=== PATIENT | female | born 1940 | race Caucasian/White ===

== ENCOUNTER 2019-09-22 17:11 | Inpatient (IN) | payer MEDICARE ==
[2019-09-22] MEDS ORDERED: Ketorolac Tromethamine 30 MG/ML VIAL ONE (19:10)
[2019-09-22] MEDS ORDERED: Fentanyl 100 MCG/2 ML VIAL ONE ×2 (19:10→22:58)
[2019-09-22] MEDS ORDERED: Digoxin 0.5 MG/2 ML AMP ONE (20:03)
[2019-09-22] MEDS ORDERED: Diltiazem HCl 125 MG, Admixture Fee 1 EACH in Sodium Chloride 0.9% 100 ML IVPB SCH (20:15)
[2019-09-22 22:12] LABS: Troponin I Less than 0.010 ng/mL (< 0.028)
[2019-09-22] MEDS ORDERED: Enoxaparin Sodium 100 MG/ML SYRINGE ONE (22:47)
[2019-09-22] MEDS ORDERED: Sodium Chloride 0.9% 1,000 ML IV SCH (23:41)
[2019-09-22 23:50] VITALS: BMI 31.7
[2019-09-23] MEDS ORDERED: Diltiazem HCl 125 MG, Admixture Fee 1 EACH in Sodium Chloride 0.9% 100 ML IVPB SCH ×3 (00:25→14:45)
[2019-09-23] MEDS ORDERED: Nitroglycerin 0.4 MG TAB (25 Tab Bottle) PO PRN (00:56)
[2019-09-23] MEDS ORDERED: Sodium Chloride 0.9% 1,000 ML IV SCH (00:56)
[2019-09-23] MEDS ORDERED: Calcium Carbonate 500 MG ChewTAB PO PRN (00:58)
[2019-09-23] MEDS ORDERED: Ondansetron PF 4 MG/2 ML Vial IVP PRN (00:58)
[2019-09-23] MEDS ORDERED: Ondansetron ODT 4 MG TAB PO PRN (00:58)
[2019-09-23] MEDS ORDERED: Metoprolol Tartrate 25 MG TAB PO SCH ×2 (01:00→09:00)
[2019-09-23] MEDS ORDERED: Tamsulosin HCl 0.4 MG CAP PO SCH ×2 (01:00→21:00)
[2019-09-23 01:10] LABS: Anion Gap 15 mmol/L (10-20); BUN (Urea Nitrogen) 12 mg/dL (9.8-20.1); Calc. Creatinine Clearance 86 mL/min (70-130); Calcium 8.6 mg/dL (7.8-10.44); Carbon Dioxide 24 mmol/L (23-31); Chloride 110 mmol/L (98-107); Estimated GFR-MDRD 73; Glucose 106 mg/dL (83-110); Magnesium 1.7 mg/dL (1.6-2.6); Phosphorus 2.6 mg/dL (2.3-4.7); Potassium 4.3 mmol/L (3.5-5.1); Sodium 145 mmol/L (136-145)
[2019-09-23] MEDS ORDERED: Polyethylene Glycol 3350 17 GM Packet PO PRN (01:24)
[2019-09-23] MEDS ORDERED: Magnesium 2 GM/50 ML 2 GM in Premix Bag 1 BAG IVPB SCH (01:30)
[2019-09-23] MEDS: Sodium Chloride 0.45% 1,000 ML IV SCH ×2 (01:30→12:17)
--- NOTE | 2019-09-23 01:56 | HP ---
The patient was seen and examined on September 22, 2019. CHIEF COMPLAINT: Right flank pain of one day duration. PRIMARY CARE PHYSICIAN: LEANDRA Arteaga. PRIMARY MACHINE OPERATOR GENERAL: Dr. Kosta Wright in [place]. HISTORY OF PRESENT ILLNESS: The patient is an 79-year-old female with supraventricular tachycardia, nonsustained ventricular tachycardia, diabetes mellitus type 2, hypertension, and breast cancer in the past, presented to the emergency room at [facility] with above complaints. The patient presented to the emergency room with diffuse abdominal pain that started in the last 24 to 36 hours. The pain was located in the right lower quadrant radiating to her back. It was constant, [id number] in intensity without any aggravating or relieving factor. She had nausea along with the low-grade fever. She denies any urinary symptoms. No chest pain reported. She felt lightheaded with intermittent palpitations. In the emergency room at [facility], her initial vital signs showed temperature 98.9, pulse rate of 137, blood pressure 119/89, respirations of 18 with O2 saturation of 98% on room air. Her workup was consistent with atrial fibrillation with rapid ventricular response along with 7 mm obstructive calculi in the mid right ureter with suspected pyelonephritis. She was started on ceftriaxone along with Cardizem drip and was transferred to this facility. In the emergency room, she received digoxin, fentanyl, and Cardizem drip was increased. She also received Lovenox 1 mg/kg at 2253. PAST MEDICAL HISTORY: 1. Diabetes mellitus type 2, diet controlled. 2. Nonsustained ventricular tachycardia found during a two-week event monitor in January of 2019. She had five episodes of nonsustained ventricular tachycardia between 3 to 5 beats. Beta-karis dose was not increased due to underlying bradycardia. 3. History of supraventricular tachycardia. 4. History of breast cancer, status post right lumpectomy. She stopped tamoxifen. 5. Degenerative joint disease. 6. History of hydrocephalus, status post SOFT SUGAR CUTTER shunt. 7. Hypertension. 8. Osteoporosis. 9. Echocardiogram in January of 2019, showed ejection fraction of 65% with questionable diastolic dysfunction. 10. Stress test in February of 2019, showed normal left ventricular systolic function with fixed finding at the anterior wall, likely representing breast attenuation artifact given the normal thickening at this segment. 11. CT scan of the abdomen and pelvis as discussed above. 12. Chest x-ray was negative for infiltrate or edema. 13. EKG by my review showed atrial fibrillation/flutter with rapid ventricular response. PAST SURGICAL HISTORY: 1. Appendectomy. 2. Bilateral salpingo-oophorectomy. 3. Breast lumpectomy. 4. Cholecystectomy. 5. SOFT SUGAR CUTTER shunt placement. 6. Hysterectomy. ALLERGIES: THE PATIENT IS ALLERGIC TO POLLENS. CURRENT HOME MEDICATION: 1. Metoprolol 25 mg b.i.d. 2. Zocor 20 mg at bedtime. 3. Effexor extended release 37.5 mg 3 capsules daily. 4. Vitamin B12 daily. 5. Calcium with vitamin D daily. 6. Aricept 10 mg at bedtime. 7. Estrace vaginal cream as directed. SOCIAL HISTORY: The patient is a former smoker, quit in 1986. She drinks alcohol socially. She is full code. Her decision maker is her daughter, Zahira Armas, phone #[phone]. FAMILY HISTORY: Mother with breast cancer. Another sister with breast cancer. REVIEW OF SYSTEMS: All other review of systems reviewed and were found negative. PHYSICAL EXAMINATION: VITAL SIGNS: As discussed above. GENERAL: 79-year-old female, in no apparent distress. Pain controlled at this time. HEENT: Head, atraumatic and normocephalic. Sclerae anicteric. Moist mucous membranes. No oral lesion. NECK: Supple. No JVD appreciated. No carotid bruit. LUNGS: Clear to auscultation bilaterally. No wheezing, rales, rhonchi. HEART: S1, S2 present. Tachycardic. No rubs or gallops. There is questionable 2/6 systolic murmur over the mitral area. ABDOMEN: Soft. There is mild tenderness in the right flank. No rebound or guarding. No costovertebral angle tenderness. EXTREMITIES: No edema or calf tenderness. NEUROLOGY: Grossly nonfocal, moves all 4 extremities. PSYCHIATRY: Alert, awake, and oriented x3. SKIN: Warm and dry. LYMPH NODES: No palpable lymph nodes in the neck. Peripheral, vascular radial pulses palpable bilaterally. MUSCULOSKELETAL: No joint swelling or tenderness. LABORATORY FINDINGS: CBC showed WBC 6.0 with hemoglobin 12.8, hematocrit 38.9, platelet 197. Chemistry showed sodium 141, potassium 4.1, chloride 106, bicarb 24, BUN of 14, creatinine of 0.79, glucose of 119. AST, ALT, alkaline phosphatase, and total bilirubin in normal range. Albumin was 4.0. IMPRESSION: 1. Atrial flutter/fibrillation with rapid ventricular response. 2. Complicated right pyelonephritis with 7 mm obstructing ureteral calculi. 3. History of nonsustained ventricular tachycardia. The patient had two weeks event monitor placed in January of 2019 that showed between 3 to 5 beats of nonsustained ventricular tachycardia. Please note, beta blockers were not increased due to underlying bradycardia. 4. History of supraventricular tachycardia. 5. History of hydrocephalus, status post ventriculoperitoneal shunt. 6. Hypertension. 7. Diet-controlled diabetes mellitus type 2. 8. Osteoporosis. 9. History of breast cancer in the past. 10. Degenerative joint disease. 11. Depression, mild stable. The patient denies any suicidal ideation. 12. Obesity with a BMI of 31.8. PLAN: The patient will be monitored in the IMCU. We will continue Cardizem drip. We will add fentanyl for pain control. We will add Flomax. We will strain the urine. Consult Cardiology and Urology in a.m. We will check echocardiogram. We will keep her n.p.o. past midnight. Continue 1 mg/kg Lovenox. Empiric antibiotics. The patient understands the above plan of care. Job ID: [id number]
--- NOTE | 2019-09-23 05:05 | PDOC.EVN ---
Event Note - Event Note Event Note: RN called - Pt converted to SR Will reduce Cardizem drip tp 5 mg/hr Update at 05:34 RN called -Pt had sinus pause upto 3 sec. Will dc Cardizem drip
[2019-09-23] MEDS ORDERED: Atropine Sulfate 1 mg/1 ml Vial IVP PRN (05:33)
[2019-09-23] MEDS: Fentanyl 100 MCG/2 ML VIAL SLOW IVP PRN ×2 (05:36→14:03)
[2019-09-23] MEDS: cefTRIAXone\\ROCEPHIN 2 GM in Sodium Chloride 0.9% 100 ML IVPB SCH (07:37)
[2019-09-23] MEDS: Famotidine 20 MG TAB PO SCH ×2 (07:38→21:25)
[2019-09-23] MEDS: Senokot S 8.6-50 MG TAB PO SCH ×2 (07:38→21:25)
--- NOTE | 2019-09-23 07:56 | CON ---
DATE OF CONSULTATION: 09/23/2019 REASON FOR CONSULT: Right hydronephrosis. PRIMARY CARE PHYSICIAN: Teresa Whitaker. PRIMARY FINANCIAL ADMINISTRATION OFFICER: Dr. Kosta Wright in [place]. HISTORY OF PRESENT ILLNESS: Ms. John is a pleasant 79-year-old female with history of diabetes, history of arrhythmia, followed by turpentiner in [place]. She denies prior history of kidney stones, presented to the [facility] Emergency Room due to 1 to 2 days history of right lower quadrant abdominal discomfort. The pain was rated at 10/10 on pain scale, subsequently her pain is adequately controlled. She, with episodes of pain, developed rapid ventricular rhythm, atrial fibrillation and is currently in IMCU on Cardizem drip. She developed bradycardia, subsequently converted to sinus, however with exacerbation of discomfort, converted back to atrial fibrillation per nursing staff. She is nontoxic appearing. Vital signs are stable, afebrile. She was provided Rocephin at [facility], transferred for higher level of care. Cardiology consultation in-house is pending. I did review extensive records regarding her CT, labs, her cardiac history. Currently, she is resting comfortably, however, has recurrence of right lower quadrant pain consistent with ureterocolic discomfort. She had subjective chills, however, no fever. Denies dysuria, gross hematuria, and history of recurrent urinary tract infection. PAST MEDICAL HISTORY: Include; 1. Diabetes, type 2. 2. History of ventricular tachycardia. 3. History of SVT. 4. History of breast cancer, status post lumpectomy. 5. DJD. 6. History of hydrocephalus, status post FRUIT GRADING SUPERVISOR shunt. 7. Hypertension. 8. Osteoporosis. PAST SURGICAL HISTORY: Include appendectomy, bilateral salpingectomy, breast lumpectomy, cholecystectomy, open FRUIT GRADING SUPERVISOR shunt, and hysterectomy. ALLERGIES: NO KNOWN DRUG ALLERGIES. CURRENT MEDICATIONS: Include; 1. Tylenol. 2. [place]. 3. Atropine. 4. Tums. 5. Rocephin, which I provided this morning. 6. Lovenox 90 mg b.i.d. 7. Pepcid. 8. Sublimaze. 9. Metoprolol. 10. Nitrostat. 11. Zofran. 12. MiraLAX. 13. Senokot. 14. Flomax. SOCIAL HISTORY: She is a former smoker, quit in 1986. Occasional alcohol. Social drinker. Full code. Daughter's name is Zahira Armas, phone #[phone]. FAMILY HISTORY: Positive for breast cancer in her sister and mother. REVIEW OF SYSTEMS: Ten-point review of systems as above, otherwise noncontributory. PHYSICAL EXAMINATION: VITAL SIGNS: Her vital signs are stable at 98.4 temperature; heart rate last night was 136 and 138 highest, this morning at 73; and oxygen saturation 94% on room air. GENERAL: The patient appears to be in no acute distress. HEENT: Unremarkable. HEART: Irregularly irregular. LUNGS: Clear to auscultation. ABDOMEN: Morbidly obese. Protuberant. No rigidity. No rebound. However, has right lower quadrant discomfort consistent with ureteral stone discomfort. GENITOURINARY: Demonstrates severe atrophic vaginitis. EXTREMITIES: No cyanosis, clubbing, or edema. PSYCHIATRIC: Appears to be appropriate and intact. NEUROLOGIC: No gross focal deficits of concern. PERTINENT LABORATORY AND IMAGING DATA: White count 9, hemoglobin 13, and platelet 219. Creatinine 1.0. Repeat creatinine this morning is 0.7. Troponin negative x2. Hemoglobin A1c on September 17, 2019 is 6.2. Urinalysis from [facility] demonstrates yellow clear, negative nitrites, negative leukocytes, 3 to 9 rbc's, no wbc's, rare epithelials, rare bacteria. Urine culture was not obtained at [facility]. CT of the abdomen and pelvis, which I reviewed myself, demonstrates right hydronephrosis due to 7-mm right mid ureteral calculi per my review at the level L4-L5. This is done with contrast with bilateral symmetric enhancement. FRUIT GRADING SUPERVISOR shunt noted. A 5-mm right adrenal myelolipoma. Left kidney is grossly unremarkable. Stress test from [facility] records reviewed from February 2019 demonstrating normal EF, normal perfusion scan. In January 2019, echocardiogram at [facility] demonstrates normal findings. EF of 65%. IMPRESSION AND PLAN: Ms. John is an 79-year-old female with history of diabetes. 1. Breast cancer. 2. Diabetes. 3. History of supraventricular tachycardia, arrhythmia, presents with right mid proximal ureteral calculi with hydronephrosis. 4. New-onset atrial fibrillation with rapid ventricular rhythm, currently rate controlled. Presents with urologic issues of right mid ureteral calculi with hydronephrosis The patient has exacerbation arrhythmia with renal colicky discomfort. She is n.p.o. for cysto, right stent. I informed the patient that we will perform ureteroscopy, laser lithotripsy at a later time, after further cardiac workup. We will reach out the hospitalist regarding surgical intervention. Anticipate cysto stent placement today. She is n.p.o. Rocephin to be started. I will obtain a straight cath, UA, C and S. Elective ureteroscopy, laser lithotripsy at a later date. Extensive time spent reviewing [facility] records, updating clinical history Job ID: [id number] [facility]ENTER[facility]
[2019-09-23 08:24] LABS: Bilirubin Negative (Negative); Blood, Urine 3+ (Negative); Clarity Clear (Clear); Glucose, Urine (Dipstick) Normal (Negative); Leukocyte Negative Leu/uL (Negative); Nitrite Negative (Negative); Protein, Urine (Dipstick) 30 mg/dL (Neg-Trace); RBC/HPF Greater than 50 HPF (0-3); Squamous Epithelial 0-3 HPF (0-3); Urobilinogen Normal mg/dL (Less than 2)
[2019-09-23] MEDS: Enoxaparin Sodium 100 MG/ML SYRINGE SC SCH ×2 (08:24→21:28)
[2019-09-23 08:34] LABS: Bacteria/HPF 1+ HPF (None Seen)
[2019-09-23] MEDS ORDERED: PROPOFOL 200 MG/20 ML VIAL ONE (09:39)
[2019-09-23] MEDS ORDERED: PHENYLEPHRINE-NS 100 MCG/ML 10 ML SYRINGE ONE (09:39)
[2019-09-23] MEDS ORDERED: Esmolol 100 MG/10 ML VIAL ONE (09:39)
[2019-09-23] MEDS ORDERED: Lidocaine 1% PF 5 ML VIAL ONE (09:39)
[2019-09-23] MEDS ORDERED: Iothalamate Meglumine 60% 50 ML VIAL FS ONE (09:40)
--- NOTE | 2019-09-23 10:56 | RAD ---
RETROGRADE IVP: COMPARISON: None. HISTORY: Right ureteral stent. FINDINGS/IMPRESSION: Limited intraoperative fluoroscopic views from retrograde IVP were submitted for interpretation. The re is mild to moderate right-sided hydronephrosis. The last image is blurry, but there may be a sten t in the right renal collecting system. Cholecystectomy clips are seen. POS: TPC
[2019-09-23] MEDS ORDERED: Fentanyl 100 MCG/2 ML VIAL ONE ×2 (11:00→11:13)
[2019-09-23] MEDS: HYDROcodone/Acetaminophen 5/325 mg Tablet PO PRN ×3 (12:16→21:25)
--- NOTE | 2019-09-23 12:35 | OP ---
DATE OF PROCEDURE: 09/23/2019 PREOPERATIVE DIAGNOSES: An 79-year-old female with right mid ureteral calculi, 7 mm with hydronephrosis. POSTOPERATIVE DIAGNOSES: An 79-year-old female with right mid ureteral calculi , 7 mm with hydronephrosis. PROCEDURES PERFORMED: Cystoscopy, right retrograde 4.8 x 26 double-J ureteral stent placement with distal tail in-situ. ANESTHESIA: LMA. COMPLICATIONS: None apparent. DISPOSITION: To recovery room in stable condition. DRAINS: A 16-Italian Delatorre catheter to gravity. INDICATIONS FOR PROCEDURE AND HISTORY: Ms. John is an 79-year-old female, who presented to [facility], transitioned to [facility] for higher level of care. She was found to be having new onset atrial fibrillation with rapid ventricular rate, CT demonstrated right hydronephrosis due to mid ureteral calculi, 7 mm. She presents for cysto, right stent placement. Cardiology consultation is pending. Her workup at [facility] few months ago with echo stress test was grossly unremarkable. Indications for the surgery reviewed including, but not limited to, bleeding, pain, infection, injury to adjacent organs, urosepsis, ureteral, renal, or kidney injury. She has been fully informed that a stage intervention will be performed when she is more stable from cardiac standpoint to proceed with ureteroscopy and laser lithotripsy. DESCRIPTION OF PROCEDURE: After an informed consent was signed, the patient was taken to the operating room, placed in a dorsal lithotomy position with the genital area prepped and draped in the usual surgical sterile fashion. A 21-Italian cystoscope was utilized for cystoscopy, which demonstrated normal urethra and bladder mucosa, UOs are normal orthotopic position. The right UO was intubated with a 5-Italian open-ended catheter and a gentle retrograde pyelogram was performed demonstrating hydronephrosis with tortuous proximal ureter. Subtle filling defect in the level of L4-L5 consistent with a stone. There was some dilation of the mid to distal ureter at the level of the bifurcation of the iliacs as it crosses; however, no filling defect is noted. I attempted to pass a 6-Italian indwelling ureteral stent. However, there was resistance in the mid to distal ureter. Therefore, I did not forcibly engage. Subsequently, we transitioned to a 4.8- Italian by 26 ureteral stent, which passed without significant issues. Proximal coil was seen in the renal pelvis, distal coil with adequate redundancy. She tolerated the procedure well. A 16-Italian 10 mL Delatorre catheter attached to gravity bag and we will monitor the patient. She will continue Rocephin until urine culture comes back. Cardiology consultation pending. She will require cardiac clearance to proceed with ureteroscopy and laser lithotripsy at a later date. Job ID: [id number] [facility]
[2019-09-23 13:13] LABS: #Eosinphils 0.1 thou/uL (0.0-0.7); #Lymphocytes 1.3 thou/uL (1.20-3.40); #Monocytes 0.5 thou/uL (0.11-0.59); %Basophils 0.4 % (0.0-1.0); %Eosinophils 1.6 % (0.0-10.0); %Lymphocytes 18.5 % (21.0-51.0); %Monocytes 7.3 % (0.0-10.0); %Neutrophils 72.2 % (42.0-75.0); Hemoglobin 12.7 g/dL (12.0-16.0); Mean Corpuscular HGB CONC 33.8 g/dL (32.0-36.0); Mean Corpuscular Hemoglobin 29.4 pg (27.0-31.0); Mean Corpuscular Volume 87.1 fL (78.0-98.0); Platelet Count 194 thou/uL (130-400); RBC Distribution Width 13.7 % (11.5-14.5); Red Blood Cell (RBC) Count 4.32 mill/uL (4.20-5.40)
[2019-09-23 13:34] LABS: Anion Gap 10 mmol/L (10-20); BUN (Urea Nitrogen) 11 mg/dL (9.8-20.1); Calc. Creatinine Clearance 87 mL/min (70-130); Calcium 8.3 mg/dL (7.8-10.44); Carbon Dioxide 26 mmol/L (23-31); Chloride 110 mmol/L (98-107); Estimated GFR-MDRD 74; Glucose 141 mg/dL (83-110); Potassium 3.8 mmol/L (3.5-5.1); Sodium 142 mmol/L (136-145)
[2019-09-23] MEDS ORDERED: HumaLOG 300 UNITS/3 ML VIAL SC PRN (14:38)
[2019-09-23] MEDS ORDERED: Dextrose 50% Abboject 50 ML SYRINGE IVP PRN (14:38)
[2019-09-23] MEDS ORDERED: Dextrose 5% in Water 1,000 ML IV PRN (14:38)
--- NOTE | 2019-09-23 15:49 | PRG ---
DATE OF SERVICE: 09/23/2019 SUBJECTIVE: Ms. John is an 79-year-old female, who presented last night from [facility]. She is followed there by a pearl technician. Apparently, she reported 1 to 2 days of right lower quadrant pain that was fairly severe. Apparently, with an episode of pain, she developed onset of AFib with RVR and was started on a Cardizem drip. She subsequently developed bradycardia, converted to sinus. However, with exacerbations of her pain, was having recurring episodes of AFib with RVR. The patient was seen by Urology. She was able to look at records from [facility], where the patient had echocardiogram revealing ejection fraction of 65% and a normal perfusion scan in February. The patient was subsequently taken this morning for ureteral stent placement. She subsequently has been doing okay with respect to that. She is still slightly uncomfortable, but generally improved. She reports that she had a near syncopal episode at home and had another in the emergency department in [place], got up to go to the bathroom over there and passed out entirely. OBJECTIVE: VITAL SIGNS: Temperature is 97.8, pulse 109, blood pressure 117/84, respirations 21, and O2 saturation 99%. GENERAL APPEARANCE: Age-appropriate female, in no distress. Awake, alert, oriented, pleasant, and cooperative. HEENT: PERRL. Pupils slightly constricted. HEART: Irregularly irregular without murmurs. LUNGS: Clear bilaterally. ABDOMEN: Soft, nontender, and nondistended. Positive bowel sounds. No masses. No organomegaly. EXTREMITIES: No cyanosis, clubbing, or edema. LABORATORY DATA: Generally unremarkable. IMPRESSION AND PLAN: 1. Cardiac pause. While I was discussing the situation with the patient today, her monitor went flat line and the patient became unresponsive, she remains asystolic for about 5 seconds and subsequently, recovered heart rhythm and awakened fully. She indicated this is the fourth time something like this has happened to her in the last couple of days. This morning, she had received p.o. 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 Case was discussed with Dr. Osorio and subsequently with Dr. Jimenez, who will come and see the patient today. Of note, her thyroid levels were normal. 2. Left ureterolithiasis. The patient had stent placed this morning by Dr. King. Continue tamsulosin and Rocephin. 3. Atrial fibrillation with rapid ventricular response. Again, the patient is having some pauses, consistent with tachy-torin syndrome. We will defer any further aggressive treatment of rate to Electrophysiology. She has been ordered Lovenox. 4. Diabetes mellitus. Continue with sliding scale insulin. 5. History of NSVT per records. Job ID: [id number] [facility]
--- NOTE | 2019-09-23 15:59 | CON ---
DATE OF CONSULTATION: HISTORY OF PRESENT ILLNESS: The patient is an 79-year-old woman, who presents for evaluation after losing consciousness. The patient has a previous history apparently of nonsustained ventricular tachycardia. She is followed by a cheese pancake roller at [facility]. She presented with abdominal discomfort. She was noted to be in rapid irregular heart rhythm. The patient reports that she has had several episodes, where she felt extremely weak and nearly lost consciousness. The patient was in the [facility] when she suddenly lost consciousness. She was admitted and today underwent a procedure for renal stone. The patient was placed on medical therapy for atrial fibrillation. She was in the hospital when she suddenly lost consciousness. The patient denied having any chest discomfort. PAST MEDICAL HISTORY: Significant for, 1. Nonsustained ventricular tachycardia. 2. Diabetes mellitus. 3. Hypertension. 4. Breast carcinoma. 5. Hydrocephalus. 6. Diabetes mellitus. 7. Dyslipidemia. PAST SURGICAL HISTORY: Salpingo-oophorectomy, appendectomy, cholecystectomy, lumpectomy, ZIPPER SETTER CHAINSTITCH shunt, and hysterectomy. ALLERGIES: SHE IS ALLERGIC TO POLLEN. MEDICATIONS: On admission, see nursing list. SOCIAL HISTORY: Former smoker. PHYSICAL EXAMINATION: GENERAL: This is a well-developed woman, in no acute distress. VITAL SIGNS: Blood pressure 117/84. NECK: Showed no jugular venous distention. LUNGS: Clear to auscultation. HEART: Irregular rate and rhythm. Normal S1 and S2. ABDOMEN: Distended. EXTREMITIES: Showed no edema. VASCULAR: Radial pulses are 2+. LABORATORY DATA: Sodium 142, potassium 3.8, chloride 110, bicarbonate 26, BUN 11, and creatinine 0.75. Troponin 0.02. White blood cell count 7.0, hemoglobin 12.7, hematocrit 37.7, and platelets are 194. IMAGING DATA: EKG revealed atrial fibrillation with a rapid ventricular response, nonspecific ST-T wave abnormality. Telemetry monitoring revealed a long pause of approximately 4 seconds. IMPRESSION: 1. Sick sinus syndrome. 2. Rapid atrial fibrillation. 3. Diabetes mellitus. 4. Hypertension. 5. Status post ureteral stent. PLAN: This patient has had several near syncopal episodes. From a cardiac standpoint, she has sick sinus syndrome with atrial fibrillation. The patient will undergo an EP consultation and most likely need placement of electronic pacemaker. We would then consider electrical cardioversion if she remains in atrial fibrillation. We will follow this patient with you through her hospitalization. Job ID: [id number]
[2019-09-23] MEDS ORDERED: Atropine Sulfate 1 mg/10 ml Syringe ONE (18:20)
[2019-09-23] MEDS: Docusate 100 MG CAP PO SCH (21:25)
--- NOTE | 2019-09-23 21:26 | CON ---
DATE OF CONSULTATION: 09/23/2019 HISTORY OF PRESENT ILLNESS: Ms. John is a very pleasant woman, transferred to the ICU for atrial fibrillation. She had a sinus pause. It was felt she would be better monitored in the ICU, then in the intermediate care unit by her vascular physician. She had no complaints when I saw her. She had a ureteral stent placed today. She tells me that she has been having multiple episodes of syncope or near syncope, especially over the last week. She was noted to be in atrial fibrillation which is a new finding. PAST MEDICAL HISTORY: 1. Remarkable for nonsustained ventricular tachycardia. 2. Diabetes. 3. Hypertension. 4. History of breast cancer. 5. History of hydrocephalus. 6. Diabetes. 7. Lipid disorder. 8. Status post hysterectomy and salpingo-oophorectomy. 9. Status post appendectomy. 10. History of cholecystectomy. 11. History of breast lumpectomy. 12. History of SEO INTERN shunt. SOCIAL HISTORY: She is a nonsmoker and nondrinker. She did smoke in the distant past. ALLERGIES: SHE IS NOT ALLERGIC TO ANY MEDICINES. REVIEW OF SYSTEMS: Ten points otherwise negative other than the blackout spells that she calls them, they have been occurring with increasing frequency over the last few weeks, especially the last week. PHYSICAL EXAMINATION: GENERAL: She is in atrial fibrillation with a rate of around 100 when I saw her earlier today. Blood pressure 102/67, respiratory rate is in the teens, and oximetry is 95. HEENT: Pupils are equal. Sclerae anicteric. NECK: Supple. No lymphadenopathy. LUNGS: Clear. HEART: Irregular rhythm. S1 and S2 are normal. ABDOMEN: Soft and nontender. EXTREMITIES: No clubbing, cyanosis, or edema. NEUROLOGIC: Nonfocal. IMPRESSION: Sick sinus syndrome with atrial fibrillation as well as sinus pauses and multiple episodes of syncope and near syncope as an outpatient. I suspect she will end up getting paced at some point. She will be monitored in critical care unit. She does not have any respiratory issues at this time. This is a 50 minute consult, with greater than 50% of time spent on unit coordinating care Job ID: [id number] [facility]
[2019-09-23] MEDS: Trospium 20 MG TAB PO SCH (21:44)
[2019-09-24 03:41] LABS: #Eosinphils 0.2 thou/uL (0.0-0.7); #Lymphocytes 1.6 thou/uL (1.20-3.40); #Monocytes 0.5 thou/uL (0.11-0.59); #Neutrophils 3.6 thou/uL (1.40-6.50); %Basophils 0.5 % (0.0-1.0); %Eosinophils 2.6 % (0.0-10.0); %Lymphocytes 26.4 % (21.0-51.0); %Monocytes 8.7 % (0.0-10.0); %Neutrophils 61.9 % (42.0-75.0); Hemoglobin 12.4 g/dL (12.0-16.0); Mean Corpuscular HGB CONC 33.2 g/dL (32.0-36.0); Mean Corpuscular Volume 87.5 fL (78.0-98.0); Platelet Count 159 thou/uL (130-400); RBC Distribution Width 13.6 % (11.5-14.5); Red Blood Cell (RBC) Count 4.26 mill/uL (4.20-5.40); White Blood Cell (WBC) Count 5.9 thou/uL (4.8-10.8)
[2019-09-24 04:05] LABS: ALT (SGPT) 11 U/L (8-55); AST (SGOT) 13 U/L (5-34); Albumin 3.3 g/dL (3.4-4.8); Alkaline Phosphatase 63 U/L (40-110); Anion Gap 13 mmol/L (10-20); BUN (Urea Nitrogen) 8 mg/dL (9.8-20.1); Bilirubin, Total 0.3 mg/dL (0.2-1.2); Calc. Creatinine Clearance 94 mL/min (70-130); Calcium 8.3 mg/dL (7.8-10.44); Carbon Dioxide 20 mmol/L (23-31); Chloride 112 mmol/L (98-107); Estimated GFR-MDRD 82; Globulin 2.6 g/dL (2.4-3.5); Glucose 108 mg/dL (83-110); Magnesium 1.9 mg/dL (1.6-2.6); Potassium 3.4 mmol/L (3.5-5.1); Protein, Total 5.9 g/dL (6.0-8.3); Sodium 142 mmol/L (136-145)
[2019-09-24] MEDS: Sodium Chloride 0.45% 1,000 ML IV SCH ×2 (05:46→16:45)
[2019-09-24] MEDS: cefTRIAXone\\ROCEPHIN 2 GM in Sodium Chloride 0.9% 100 ML IVPB SCH (07:51)
--- NOTE | 2019-09-24 08:52 | PRG ---
DATE OF SERVICE: 09/24/2019 SUBJECTIVE: patient feeling okay. She has been moved to ICU due to her atrial fibrillation with RVR. OBJECTIVE: VITAL SIGNS: Her heart rate on 140s. She is afebrile. Blood pressure 140/90. ABDOMEN: Soft, nontender, and nondistended. No rigidity. No rebound. Urine output is linda, red-tinged. She is on Lovenox. Her urine output did drop overnight, previously 2 L, 120. PERTINENT LABORATORY DATA: White count 5.9, hemoglobin 12, and platelet 159. Renal function, creatinine 0.69. Urine culture is pending. UA on arrival did demonstrate 1+ bacteria. IMPRESSION AND PLAN: 1. Ms. John is an 79-year-old female with right flank pain due to midureteral calculi, postop day #1, cysto, right retrograde stent. Continue antibiotic therapy, on Rocephin until culture finalized for targeted antibiotic regimen as an outpatient. 2. Admitted for arrhythmia, sick sinus syndrome. Cardiology workup is in progress. The patient is being worked up for pacemaker. When Cardiology issues have resolved and cleared, w elective ureteroscopy and laser lithotripsy at a later date. Continue Delatorre for now, trospium for bladder spasms. Job ID: [id number] [facility]
[2019-09-24] MEDS ORDERED: Donepezil HCl 10 MG TAB PO ONE (09:00)
[2019-09-24] MEDS: Senokot S 8.6-50 MG TAB PO SCH ×2 (09:13→20:46)
[2019-09-24] MEDS: Famotidine 20 MG TAB PO SCH ×2 (09:14→20:46)
[2019-09-24] MEDS: Enoxaparin Sodium 100 MG/ML SYRINGE SC SCH (09:14)
[2019-09-24] MEDS: Docusate 100 MG CAP PO SCH ×2 (09:14→20:46)
[2019-09-24] MEDS: Trospium 20 MG TAB PO SCH ×2 (09:14→20:46)
--- NOTE | 2019-09-24 09:23 | PRG ---
DATE OF SERVICE: 09/24/2019 SUBJECTIVE: Radha John had multiple episodes of sinus pauses last night. She has external pacing pads on. She said with all this going on overnight, she had nightmares. OBJECTIVE: VITAL SIGNS: Currently, her blood pressure is , heart rates 150s, she appears to be in atrial fib, respiratory rates in the teens. LUNGS: Clear. HEART: Regular and rapid. No murmurs heard. ABDOMEN: Soft and nontender. EXTREMITIES: Without asymmetry. LABORATORY DATA: White count 5.9, hemoglobin 12.4, platelets 159. Sodium 142, potassium 3.4, chloride 112, bicarb 20, BUN 8, creatinine 0.69. IMPRESSION: Tachy-torin syndrome. Fortunately, she is tolerating a rapid rhythm. Clearly, she seems to need a pacemaker at some point. She does not have any clinical evidence of significant pulmonary edema at this point in time, but we will continue to follow closely. Job ID: [id number]
--- NOTE | 2019-09-24 09:29 | CON ---
DATE OF CONSULTATION: REASON FOR CONSULTATION: I am seeing Ms. John at our [facility] Intensive Care Unit as an electrophysiology planning consultant. Her problems are: 1. Newly found atrial flutter/fibrillation. a. 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 b. Rapid ventricular rates are detected. 2. Current admission due to ureteral stone status post stenting. 3. History of nonsustained ventricular tachycardia during monitoring in 01/2019 at 3 to 5 beats, on chronic beta-karis therapy. 4. History of supraventricular tachycardia. 5. History of breast cancer status post lumpectomy. 6. Type 2 diabetes. 7. History of hydrocephalus status post PIPE ORGAN INSTALLER shunt. 8. History of hypertension. 9. History of preserved LVEF at 65% with diastolic dysfunction. 10. Stress test in 02/2019 showing normal left ventricular systolic function, thick anterior wall defect, likely artifact. ALLERGIES: POLLENS. MEDICATIONS AT HOME: Include: 1. Metoprolol 25 mg twice a day. 2. Zocor 10 mg daily. 3. EfFexor extended release. 4. Vitamin B12. 5. Calcium. 6. Aricept. 7. Estrace. SUBJECTIVE: Ms. John was admitted with severe complaints of abdominal pain, radiated to the back, especially in right lower quadrant of the abdomen and the back. This comes in [id number] intensity without relieving factors, lasted about 24 to 36 hours prior to admission. Associated nausea and low-grade fever were noted, but no other urinary symptoms. She denies chest pains. She does have intermittent dizziness and palpitations. She was evaluated in the [facility] ER and was found to have a significant 7-mm obstructive calculi in mid right ureter, suspected pyelonephritis. Ceftriaxone was started and IV Cardizem drip was also initiated. She was transferred to our facility. She did have a history of syncopal, blackout spell in the [place] ER. While on telemetry here in our facility, she had a 5-second pause and she developed a near-syncopal spell, severe dizziness transiently, then resolving, associated with the 5-second pause. Consequently, her heart rate lowering medications were held and she was placed on external pacer. She comes to have rapid heart rate since then. She denies chest pains at this time. No fever, chills, or cough. No PND or orthopnea. REVIEW OF SYSTEMS: Rest of 12-point review of system otherwise unremarkable. PAST MEDICAL HISTORY: As above, followed by Dr. 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 1. She has history of nonsustained VT and was on beta-karis therapy for that, noted on a Zio Patch monitor in the past. 2. Diabetes. 3. Hypertension. 4. Breast cancer with lumpectomy. 5. Hydrocephalus with PIPE ORGAN INSTALLER shunt. 6. Dyslipidemia is noted. SURGICAL HISTORY: Significant for: 1. Salpingo-oophorectomy. 2. Appendectomy. 3. Cholecystectomy. 4. Tonsillectomy. 5. PIPE ORGAN INSTALLER shunt. 6. Hysterectomy. SOCIAL HISTORY: The patient is a prior smoker, quit in 1986. Drinks alcohol socially. She is a full code. Decision maker is her daughter, . FAMILY HISTORY: Significant for mother having breast cancer and sister had breast cancer as well. OBJECTIVE DATA: VITAL SIGNS: Blood pressure 102/67, heart rate 118, respirations 17, and temperature 98.4 degrees Fahrenheit. GENERAL: This is an alert and oriented woman, in no apparent distress with elevated BMI. NECK: Supple. Jugular veins not distended. CHEST: Coarse without crackles. HEART: Sounds are regular to rate and rhythm, but tachycardic. No murmur or gallop is appreciated. ABDOMEN: Benign. Bowel sounds are positive. EXTREMITIES: Lower extremities without edema, clubbing, or cyanosis. NEUROLOGIC: The patient is nonfocal. MUSCULOSKELETAL: Without joint swelling or deformity. SKIN: Without rash. DATABASE: EKG is reviewed, revealing an initial rhythm of an atrial flutter with variable AV conduction at a rate of 132 beats per minute. The flutter waves are low amplitude, but could be consistent with typical isthmus dependent atrial flutter. Subsequent EKG is similar with better ventricular rate control. Telemetry strips reveal intermittent tachycardia at 150 beats per minute, likely 2:1 atrial flutter, but bradycardic episodes are also noted with asystole up to 5.5 seconds are well documented at the time of her near syncopal spells at 04:54 p.m. today. LABORATORY DATA: White blood cell count is 7, hemoglobin 12.7, and platelet count is 194. Sodium 142, potassium 3.8, BUN is 11, and creatinine 0.75. Operative note is reviewed by Dr. King, urologist with cystoscopy performed with a right retrograde 4.8 x 26 double-J ureteral stent was placed for hydronephrosis. ASSESSMENT AND PLAN: Ms. John is a pleasant 79-year-old woman with prior history of nonsustained ventricular tachycardia, remote history of supraventricular tachycardia with details unavailable. She presented with ureteral stone and hydronephrosis, required the ureteral stent placement as above. Now, her urologic symptoms are improving, but she continues to have constant atrial flutter with tachy-torin syndrome. Per her history, this seems to be a new finding. She has recurrent near-syncopal and syncopal spells and clearly demonstrated to be associated with bradycardia. She is on mild heart rate lowering agents, and now she is off the diltiazem drip as well. Heart rate control will be difficult without the capability of IV or p.o. diltiazem or beta blockers. We discussed treatment options. 1. Clearly, she may have AV vasyl disease, but also hypervagotonia associated with her ureteral pains could play a role. No obvious conduction disease on her QRS is present. Nevertheless, permanent pacing would be reasonable, hence the ongoing symptoms. 2. Consideration for cardioversion of her atrial flutter also a potential option. Nevertheless, bradycardia could still persist subsequent to that, especially if vagotonia is the cause of that. If the pauses continue, this pacing would be a primary option, later DESIRAE-guided cardioversion could be considered once the patient can be safely back on anticoagulation as well. 3. Hence the typical isthmus dependent morphology of some of her flutter, cavotricuspid isthmus ablation also a potential option in the future. Risks and benefits of the pacemaker implantation were discussed. We will monitor her overnight, and if heart rate continues to be with major bradycardic episodes, pacemaker implantation will be the plan for tomorrow. Job ID: [id number]
[2019-09-24] MEDS ORDERED: Venlafaxine XR 37.5 MG CAP PO ONE (09:30)
[2019-09-24] MEDS ORDERED: Iopamidol 370 76% 50 ML VIAL FS ONE (09:44)
--- NOTE | 2019-09-24 09:55 | PDOC.HOSPP ---
- Subjective Encounter Date: 09/24/19 Subjective: Feels ok. No pain form the ureterolithiasis. Has very mild chest pressure. She has been shocked by the pads several times. Overnight she had conversion to NSR. Cardizem decreased. Then had pause and it was DC'd. Says she does not feel depressed, but without her meds she will just start crying. - Objective Vital Signs & Weight: Vital Signs (12 hours) Temp 09/24/19 03:00 98.6 F 09/23/19 23:00 98.2 F Weight Weight 202 lb 12.8 oz Most Recent Monitor Data Heart Rate from ECG 149 NIBP 148/90 NIBP BP-Mean 109 Respiration from ECG 14 SpO2 97 I&O: 09/23/19 09/24/19 09/25/19 06:59 06:59 06:59 Intake Total 890 2192 Output Total 420 2005 120 Balance 470 187 -120 Result Diagrams: 09/24/19 03:29 09/24/19 03:29 Additional Labs: Accuchecks 09/23/19 09/23/19 21:09 16:59 POC Glucose 136 H 169 H Hospitalist ROS - Medication Medications: Active Medications Generic Name Dose Route Start Last Admin Trade Name Freq PRN Reason Stop Dose Admin Docusate Sodium 100 mg 09/23/19 21:00 09/24/19 09:14 Colace PO 100 mg BID ANU Administration Enoxaparin Sodium 90 mg 09/23/19 09:00 09/24/19 09:14 Lovenox SC Not Given 0900,2100 ANU Famotidine 20 mg 09/23/19 09:00 09/24/19 09:14 Pepcid PO 20 mg BID ANU Administration Sodium Chloride 1,000 mls @ 75 mls/hr 09/23/19 01:30 09/24/19 05:46 1/2 Normal Saline IV Not Given .[id number] ANU Ceftriaxone Sodium 2 gm/ 100 mls @ 200 mls/hr 09/23/19 08:00 09/24/19 07:51 Sodium Chloride IVPB 100 mls 0800 ANU Administration Insulin Human Lispro 0 units 09/23/19 14:38 09/23/19 17:18 Humalog SC 2 unit .MILD SLIDING SCALE PRN Administration MILD SLIDING SCALE Protocol Senna/Docusate Sodium 2 tab 09/23/19 09:00 02/27/20 09:13 Senokot S PO 2 tab BID ANU Administration Trospium 20 mg 09/23/19 21:00 09/24/19 09:14 Trospium PO 20 mg BID ANU Administration - Exam General Appearance: NAD, awake alert Heart: no murmur, no gallops, no rubs Heart - other findings: SVT with rate 150. Respiratory: CTAB, no wheezes, no rales, no ronchi, normal chest expansion, no tachypnea, normal percussion Gastrointestinal: soft, non-tender, non-distended, normal bowel sounds, no palpable masses, no hepatomegaly, no splenomegaly, no bruit Extremities: no cyanosis, no clubbing, no edema Musculoskeletal: normal tone Psychiatric: normal affect, normal behavior, A&O x 3 Hosp A/P (1) Ureterolithiasis Code(s): N20.1 - CALCULUS OF URETER Status: Acute (2) SVT (supraventricular tachycardia) Code(s): I47.1 - SUPRAVENTRICULAR TACHYCARDIA Status: Acute (3) Sick sinus syndrome due to SA node dysfunction Code(s): I49.5 - SICK SINUS SYNDROME Status: Acute (4) Diabetes mellitus Code(s): E11.9 - TYPE 2 DIABETES MELLITUS WITHOUT COMPLICATIONS Status: Acute (5) Depression Code(s): F32.9 - MAJOR DEPRESSIVE DISORDER, SINGLE EPISODE, UNSPECIFIED Status : Acute (6) Hydronephrosis Code(s): N13.30 - UNSPECIFIED HYDRONEPHROSIS Status: Acute - Plan Uerterolithiasis: Doing well post-ureteral stent. No pain. Urology following. Continue Delatorre and Trospium. Continuing abx until negative cx. Sick Sinus Syndrome: SVT, Afib, pauses with syncope. No with pacer pads and had several shocks for pauses. I am told by nursing that the plan is for EP intevention this afternoon. Suspect ablation and PPM. DM: Does not appear to be on home meds. Continue accuchecks and SSI for now. Depression: Resume home meds/Effexor.
[2019-09-24] MEDS ORDERED: Potassium Chloride 40 MEQ in Sodium Chloride 0.9% 500 ML IVPB SCH (10:30)
[2019-09-24] MEDS ORDERED: Fentanyl 100 MCG/2 ML VIAL ONE (15:35)
[2019-09-24] MEDS ORDERED: Midazolam HCl 2 mg/2 ml Vial ONE (15:35)
[2019-09-24] MEDS ORDERED: Metoprolol Tartrate 5 MG/5 ML VIAL ONE (15:53)
[2019-09-24] MEDS ORDERED: Digoxin 0.5 MG/2 ML AMP ONE (16:10)
--- NOTE | 2019-09-24 16:51 | EKG ---
Test Reason : Blood Pressure : / mmHG Vent. Rate : 149 BPM Atrial Rate : 150 BPM P-R Int : 000 ms QRS Dur : 082 ms QT Int : 280 ms P-R-T Axes : 000 061 -84 degrees QTc Int : 441 ms narrow complex tachycardia with frequent Premature ventricular complexes Abnormal ECG When compared with ECG of 22-SEP-2019 19:37, (Unconfirmed) Sinus rhythm has replaced Atrial flutter Vent. rate has increased BY 69 BPM T wave inversion less evident in Lateral leads Confirmed by DR. Elgin BENOIT (3) on 09/24/2019 4:50:27 PM Referred By: PATRICK Confirmed By:DR. Elgin BENOIT
[2019-09-24] MEDS ORDERED: Metoprolol Tartrate 25 MG TAB PO SCH (17:00)
[2019-09-24] MEDS ORDERED: Digoxin 0.5 MG/2 ML AMP SLOW IVP SCH (17:00)
[2019-09-24] MEDS: Acetaminophen 325 MG TAB PO PRN (17:02)
--- NOTE | 2019-09-24 17:15 | RAD ---
Portable frontal chest radiograph: 09/24/2019 COMPARISON: None HISTORY: Evaluate chest following pacemaker insertion FINDINGS: There is a dual lead transvenous pacing device inserted via a left subclavian approach. Heather ds overlie the region of the right atrium and the right ventricle. No pneumothorax or pleural fluid. No focal consolidation or alveolar edema. There is atherosclerotic calcification of the aortic arch. IMPRESSION: Left-sided dual-lead transvenous pacing device. No pneumothorax seen.
[2019-09-24] MEDS: Metoprolol Tartrate 25 MG TAB PO SCH (20:46)
[2019-09-24] MEDS: Cephalexin 250 MG CAP PO SCH (20:46)
[2019-09-24] MEDS: Digoxin 0.5 MG/2 ML AMP SLOW IVP SCH (22:42)
[2019-09-24] MEDS: Acetaminophen/Codeine 30-300mg Tablet PO PRN (22:42)
[2019-09-25] MEDS: Digoxin 0.5 MG/2 ML AMP SLOW IVP SCH (02:35)
[2019-09-25] MEDS: Sodium Chloride 0.45% 1,000 ML IV SCH (06:01)
[2019-09-25] MEDS: Acetaminophen/Codeine 30-300mg Tablet PO PRN (06:54)
--- NOTE | 2019-09-25 08:04 | PRG ---
DATE OF SERVICE: 09/25/2019 SUBJECTIVE: The patient is alert and awake. Denies nausea, vomiting, or chills. OBJECTIVE: VITAL SIGNS: Stable. She is afebrile. Heart rate 70 to 80s, blood pressure stable. I's and O's 2089 in and 3179 out, pink-tinged urine. ABDOMEN: Soft. No rigidity. No rebound. LABORATORY DATA: Creatinine yesterday 0.6. Urine culture preliminary negative. IMPRESSION AND PLAN: 1. An 79-year-old female presented with right flank pain, right proximal ureteral calculi, status post cystoscopy, right retrograde, ureteral stent, postoperative day #2. 2. Sick sinus syndrome and arrhythmias, status post pacemaker. RECOMMENDATION: From my perspective, discontinue Delatorre catheter. Continue Rocephin while in-house. If patient is discharged over the weekend, I do recommend prophylactic antibiotic therapy with Omnicef 300 mg one p.o. b.i.d. I provided my business card for followup appointment with me on 09/29 to schedule elective ureteroscopy and laser lithotripsy with cardiac clearance. The patient may stay in-house due to her cardiac issues. I informed the patient. [facility] covering me this weekend for p.r.n. issues if she remains in-house. Job ID: [id number] MTDD
[2019-09-25] MEDS: cefTRIAXone\\ROCEPHIN 2 GM in Sodium Chloride 0.9% 100 ML IVPB SCH (09:06)
[2019-09-25] MEDS: Metoprolol Tartrate 25 MG TAB PO SCH ×4 (09:07→21:52)
[2019-09-25] MEDS: Docusate 100 MG CAP PO SCH ×2 (09:07→21:51)
[2019-09-25] MEDS: Cephalexin 250 MG CAP PO SCH ×3 (09:08→21:52)
[2019-09-25] MEDS: Senokot S 8.6-50 MG TAB PO SCH ×2 (09:08→21:51)
[2019-09-25] MEDS: Donepezil HCl 10 MG TAB PO SCH (09:08)
[2019-09-25] MEDS: Digoxin 0.125 MG TAB PO SCH (09:08)
[2019-09-25] MEDS: Famotidine 20 MG TAB PO SCH ×2 (09:08→21:52)
[2019-09-25] MEDS: Venlafaxine XR 37.5 MG CAP PO SCH (09:09)
[2019-09-25] MEDS: Trospium 20 MG TAB PO SCH ×2 (09:09→21:52)
--- NOTE | 2019-09-25 09:21 | PRG ---
DATE OF SERVICE: 09/25/2019 SUBJECTIVE: Radha John has her pacemaker in. She is intermittently paced. OBJECTIVE: VITAL SIGNS: Blood pressure 177/82, heart rate is 80, respiratory rate is 16. LUNGS: Clear. HEART: Regular rhythm. ABDOMEN: Soft. IMPRESSION: Tachy-torin syndrome, better now that she is paced. No new lab today other than glucoses . We will sign off. Job ID: [id number]
--- NOTE | 2019-09-25 10:49 | PDOC.EP ---
- Subjective Date: 09/25/19 Time: 10:47 Interval History: follow up for arrhythmia management and s/p PPM implant. Having some pain at PPM implant site. - Review of Systems Constitutional: denies: chills, fever, malaise, sweats, weakness, other Respiratory: denies: cough, dry, hemoptysis, pleuritic pain, shortness of breath , SOB with excertion, sputum, wheezing, other Cardiology: denies: edema, heart racing, light headedness, palpitations, passing out Gastrointestinal: denies: abdominal pain, constipation, diarrhea Musculoskeletal: denies: unstable gait, falls, neck pain - Objective Allergies/Adverse Reactions: Allergies Allergy/AdvReac Type Severity Reaction Status Date / Time No Known Allergies Allergy Verified 09/23/19 04:45 Current Medications Acetaminophen (Tylenol) 650 mg PO Q4H PRN PRN Reason: Headache/Fever/Mild Pain (1-3) Last Admin: 09/24/19 17:02 Dose: 650 mg Acetaminophen/Codeine Phosphate (Tylenol #3) 1 tab PO Q4H PRN PRN Reason: Pain 4-6 Last Admin: 09/25/19 06:54 Dose: 1 tab Apixaban (Eliquis) 5 mg PO BID [facility] Atropine Sulfate (Atropine) 0.5 mg IVP ASDIR PRN PRN Reason: Sustained Bradycardia HR < 30 Calcium Carbonate (Tums) 1,000 mg PO Q4H PRN PRN Reason: Heartburn or Indigestion Cephalexin (Keflex) 250 mg PO TID [facility] Stop: 10/04/19 15:01 Last Admin: 09/25/19 09:08 Dose: 250 mg Dextrose/Water (Dextrose 50%) 25 gm IVP PRN PRN PRN Reason: HYPOGLYCEMIA PROTOCOL Digoxin (Lanoxin) 0.125 mg PO QAM [facility] Last Admin: 09/25/19 09:08 Dose: 0.125 mg Docusate Sodium (Colace) 100 mg PO BID [facility] Last Admin: 09/25/19 09:07 Dose: 100 mg Donepezil HCl (Aricept) 10 mg PO DAILY [facility] Last Admin: 09/25/19 09:08 Dose: 10 mg Famotidine (Pepcid) 20 mg PO BID [facility] Last Admin: 09/25/19 09:08 Dose: 20 mg Glucagon (Glucagon) 1 mg IM PRN PRN PRN Reason: HYPOGLYCEMIA PROTOCOL Sodium Chloride (1/2 Normal Saline) 1,000 mls @ 75 mls/hr IV .[id number] [facility] Last Admin: 09/25/19 06:01 Dose: 1,000 mls Ceftriaxone Sodium 2 gm/ (Sodium Chloride) 100 mls @ 200 mls/hr IVPB 0800 [facility] Last Admin: 09/25/19 09:06 Dose: 100 mls Dextrose/Water (D5w) 1,000 mls @ 0 mls/hr IV INF PRN PRN Reason: HYPOGLYCEMIA PROTOCOL Insulin Human Lispro (Humalog) 0 units SC .MILD SLIDING SCALE PRN; Protocol PRN Reason: MILD SLIDING SCALE Last Admin: 09/23/19 17:18 Dose: 2 unit Metoprolol Tartrate (Lopressor) 25 mg PO QID [facility] Last Admin: 09/25/19 09:07 Dose: 25 mg Nitroglycerin (Nitrostat) 0.4 mg PO Q5MIN PRN PRN Reason: Chest Pain Polyethylene Glycol (Miralax) 17 gm PO DAILY PRN PRN Reason: Constipation Senna/Docusate Sodium (Senokot S) 2 tab PO BID [facility] Last Admin: 09/25/19 09:08 Dose: 2 tab Sodium Chloride (Flush - Normal Saline) 10 ml IVF PRN PRN PRN Reason: Saline Flush Sodium Chloride (Flush - Normal Saline) 10 ml IVF PRN PRN PRN Reason: Saline Flush Trospium (Trospium) 20 mg PO BID [facility] Last Admin: 09/25/19 09:09 Dose: 20 mg Venlafaxine HCl (Effexor Xr) 112.5 mg PO DAILY [facility] Last Admin: 09/25/19 09:09 Dose: 112.5 mg Vital Signs & Weight: Vital Signs Temp Pulse Pulse Pulse BP BP Pulse Ox 09/25/19 09:20 67 106 H 126/89 159/95 H 95 09/25/19 09:08 72 09/25/19 03:00 98.0 F 09/25/19 02:35 137 H 09/24/19 23:00 98.2 F Pulse Ox 09/25/19 09:20 97 09/25/19 09:08 09/25/19 03:00 09/25/19 02:35 02/27/20 23:00 Weight 202 lb 12.8 oz I/O: I/O 09/24/19 09/25/19 09/26/19 06:59 06:59 06:59 Intake Total 2191 2090 Output Total 2004 3179 Balance 187 -9182 - Quality Measures CV meds: Eliquis: Yes (restarting 2 AM) - Physical Exam General: alert & oriented x3, appears well, no apparent distress, speech clear, affect appropriate HEENT: mucus membranes moist, normocephaly Neck: supple neck, midline trachea, no JVD/HJR, no masses, no bruit, no lymphadenopathy, no thromegaly Cardiology: no murmur, PMI nondisplaced, irregularly irregular Lungs: clear to auscultation, normal breath sounds, no wheeze, rales, rhonchi Neurology: cranial nerve 2-12 intact, grossly intact, sensory function intact Skin: bruising, left sided device, swelling. negative: drainage, erosion - Labs Result Diagrams: 09/24/19 03:29 09/24/19 03:29 - EKG Interpretation EKG Method: Bedside - Device Device: dual, pacemaker Device Result: Medtronic - Assessment/Plan Assessment/Plan: 1. Atrial arrhythmias with RVR - possibly CTI dependent, newly diagnosed - now rate controlled atrial fibrillation 2. Tachy- torin syndrome - s/p dual chamber medtronic PPM placed 09/24/2019 3. Dual chamber PPM - CXR stable - device check stable, normal function 4. CHADS2-VASC: 4 (age, gender, HTN) - Eliquis 5mg PO BID to start 229 AM Now in A Fib. rate controlled. Plan to see back in clinic in 2 weeks for PPM/ wound check. Continue rate control strategy for now. EP signing off.
[2019-09-25] MEDS: Acetaminophen 325 MG TAB PO PRN (14:21)
--- NOTE | 2019-09-25 16:41 | EKG ---
Test Reason : Blood Pressure : / mmHG Vent. Rate : 106 BPM Atrial Rate : 288 BPM P-R Int : 000 ms QRS Dur : 070 ms QT Int : 318 ms P-R-T Axes : 000 055 -84 degrees QTc Int : 422 ms Undetermined rhythm Low voltage QRS Abnormal ECG When compared with ECG of 24-SEP-2019 08:10, Current undetermined rhythm precludes rhythm comparison, needs review Confirmed by DR. Elgin BENOIT (3) on 09/25/2019 4:41:17 PM Referred By: PATRICK Confirmed By:DR. Elgin BENOIT
--- NOTE | 2019-09-25 16:45 | EKG ---
Test Reason : Blood Pressure : / mmHG Vent. Rate : 081 BPM Atrial Rate : 081 BPM P-R Int : 000 ms QRS Dur : 082 ms QT Int : 344 ms P-R-T Axes : 000 049 -87 degrees QTc Int : 399 ms Atrial fibrillation Abnormal ECG When compared with ECG of 24-SEP-2019 17:01, (Unconfirmed) Previous ECG has undetermined rhythm, needs review Confirmed by DR. Elgin BENOIT (3) on 09/25/2019 4:45:26 PM Referred By: PATRICK Confirmed By:DR. Elgin BENOIT
[2019-09-25] MEDS ORDERED: Ondansetron PF 4 MG/2 ML Vial SLOW IVP PRN (19:52)
[2019-09-25] MEDS ORDERED: Ondansetron PF 4 MG/2 ML Vial IVP PRN (20:05)
--- NOTE | 2019-09-25 22:22 | PDOC.HOSPP ---
- Subjective Encounter Date: 09/25/19 Subjective: Feels well. No complaints. No abd pain. - Objective Vital Signs & Weight: Vital Signs (12 hours) Temp Pulse Resp BP Pulse Ox 09/25/19 19:38 97.5 F L 72 18 170/84 H 97 Weight Weight 202 lb 12.8 oz Most Recent Monitor Data Heart Rate from ECG 76 NIBP 165/61 NIBP BP-Mean 95 Respiration from ECG 20 SpO2 95 I&O: 09/24/19 09/25/19 09/26/19 06:59 06:59 06:59 Intake Total 2191 2090 1070 Output Total 2004 3179 1000 Balance 187 -1089 70 Result Diagrams: 09/24/19 03:29 09/24/19 03:29 Additional Labs: Accuchecks 09/25/19 09/25/19 20:56 07:32 POC Glucose 125 H 107 Hospitalist ROS - Medication Medications: Active Medications Generic Name Dose Route Start Last Admin Trade Name Freq PRN Reason Stop Dose Admin Acetaminophen 650 mg 09/23/19 00:58 09/25/19 14:21 Tylenol PO 650 mg Q4H PRN Administration Headache/Fever/Mild Pain (1-3) Acetaminophen/Codeine Phosphate 1 tab 09/24/19 17:33 09/25/19 06:54 Tylenol #3 PO 1 tab Q4H PRN Administration Pain 4-6 Cephalexin 250 mg 09/24/19 21:00 09/25/19 21:52 Keflex PO 10/04/19 15:01 250 mg TID ANU Administration Digoxin 0.125 mg 09/25/19 09:00 09/25/19 09:08 Lanoxin PO 0.125 mg QAM ANU Administration Docusate Sodium 100 mg 09/23/19 21:00 09/25/19 21:51 Colace PO 100 mg BID ANU Administration Donepezil HCl 10 mg 09/25/19 09:00 09/25/19 09:08 Aricept PO 10 mg DAILY ANU Administration Famotidine 20 mg 09/23/19 09:00 09/25/19 21:52 Pepcid PO 20 mg BID ANU Administration Ceftriaxone Sodium 2 gm/ 100 mls @ 200 mls/hr 09/23/19 08:00 09/25/19 09:06 Sodium Chloride IVPB 100 mls 0800 ANU Administration Insulin Human Lispro 0 units 09/23/19 14:38 09/23/19 17:18 Humalog SC 2 unit .MILD SLIDING SCALE PRN Administration MILD SLIDING SCALE Protocol Metoprolol Tartrate 25 mg 09/24/19 21:00 09/25/19 21:52 Lopressor PO 25 mg QID ANU Administration Senna/Docusate Sodium 2 tab 09/23/19 09:00 09/25/19 21:51 Senokot S PO 2 tab BID ANU Administration Trospium 20 mg 09/23/19 21:00 09/25/19 21:52 Trospium PO 20 mg BID ANU Administration Venlafaxine HCl 112.5 mg 09/25/19 09:00 09/25/19 09:09 Effexor Xr PO 112.5 mg DAILY ANU Administration - Exam General Appearance: NAD, awake alert Neck: supple, symmetric, no JVD, no thyromegaly, no lymphadenopathy, no carotid bruit Heart: no murmur, no gallops, no rubs, irregular Respiratory: CTAB, no wheezes, no rales, no ronchi, normal chest expansion, no tachypnea, normal percussion Gastrointestinal: soft, non-tender, non-distended, normal bowel sounds, no palpable masses, no hepatomegaly, no splenomegaly, no bruit Extremities: no cyanosis, no clubbing, no edema Musculoskeletal: normal tone, normal strength Psychiatric: normal affect, normal behavior, A&O x 3 Hosp A/P (1) Ureterolithiasis Code(s): N20.1 - CALCULUS OF URETER Status: Acute (2) SVT (supraventricular tachycardia) Code(s): I47.1 - SUPRAVENTRICULAR TACHYCARDIA Status: Acute (3) Sick sinus syndrome due to SA node dysfunction Code(s): I49.5 - SICK SINUS SYNDROME Status: Acute (4) Atrial fibrillation Code(s): I48.91 - UNSPECIFIED ATRIAL FIBRILLATION Status: Acute (5) Diabetes mellitus Code(s): E11.9 - TYPE 2 DIABETES MELLITUS WITHOUT COMPLICATIONS Status: Acute (6) Depression Code(s): F32.9 - MAJOR DEPRESSIVE DISORDER, SINGLE EPISODE, UNSPECIFIED Status : Acute (7) Hydronephrosis Code(s): N13.30 - UNSPECIFIED HYDRONEPHROSIS Status: Acute - Plan Uerterolithiasis: Doing well post-ureteral stent. No pain. Urology following. Continue Delatorre and Trospium. Continuing abx until negative cx. Sick Sinus Syndrome/Afib: PPM placed 09/24/19. Site looks good. EP signed off. Cards following. Continuing to titrate the BB for tachycardia. Continue Eliquis. DM: Does not appear to be on home meds. Continue accuchecks and SSI for now. Depression: Resume home meds/Effexor. Disposition: OK to transfer to tele. Can DC when HR controlled. Will need po abx per Dr. King. Will need follow up with her.
[2019-09-26] MEDS: cefTRIAXone\\ROCEPHIN 2 GM in Sodium Chloride 0.9% 100 ML IVPB SCH (08:29)
[2019-09-26] MEDS: Digoxin 0.125 MG TAB PO SCH (08:39)
[2019-09-26] MEDS: Famotidine 20 MG TAB PO SCH ×2 (08:39→20:28)
[2019-09-26] MEDS: Cephalexin 250 MG CAP PO SCH ×3 (08:39→20:28)
[2019-09-26] MEDS: Trospium 20 MG TAB PO SCH ×2 (08:40→20:28)
[2019-09-26] MEDS: Venlafaxine XR 37.5 MG CAP PO SCH (08:40)
[2019-09-26] MEDS: Senokot S 8.6-50 MG TAB PO SCH ×2 (08:40→20:28)
[2019-09-26] MEDS: Acetaminophen 325 MG TAB PO PRN (08:41)
[2019-09-26] MEDS: Donepezil HCl 10 MG TAB PO SCH (08:41)
[2019-09-26] MEDS: Apixaban 5 MG TAB PO SCH ×2 (08:41→20:28)
[2019-09-26] MEDS: Metoprolol Tartrate 25 MG TAB PO SCH ×4 (08:41→20:28)
[2019-09-26] MEDS: Docusate 100 MG CAP PO SCH ×2 (08:41→20:28)
[2019-09-26] MEDS: Diltiazem 125 MG in Sodium Chloride 0.9% 100 ML IVPB SCH ×2 (09:18→20:27)
--- NOTE | 2019-09-26 14:52 | PDOC.CPN ---
- Subjective Date: 09/26/19 Time: 14:59 Interval history: The pt seen and examined. No overnight events. No cardiac complaints. - Objective Allergies/Adverse Reactions: Allergies Allergy/AdvReac Type Severity Reaction Status Date / Time No Known Allergies Allergy Verified 09/23/19 04:45 Visit Medications: Current Medications Acetaminophen (Tylenol) 650 mg PO Q4H PRN PRN Reason: Headache/Fever/Mild Pain (1-3) Last Admin: 09/26/19 08:41 Dose: 650 mg Acetaminophen/Codeine Phosphate (Tylenol #3) 1 tab PO Q4H PRN PRN Reason: Pain 4-6 Last Admin: 09/25/19 06:54 Dose: 1 tab Apixaban (Eliquis) 5 mg PO BID [facility] Last Admin: 09/26/19 08:41 Dose: 5 mg Atropine Sulfate (Atropine) 0.5 mg IVP ASDIR PRN PRN Reason: Sustained Bradycardia HR < 30 Calcium Carbonate (Tums) 1,000 mg PO Q4H PRN PRN Reason: Heartburn or Indigestion Cephalexin (Keflex) 250 mg PO TID [facility] Stop: 10/04/19 15:01 Last Admin: 09/26/19 14:13 Dose: 250 mg Dextrose/Water (Dextrose 50%) 25 gm IVP PRN PRN PRN Reason: HYPOGLYCEMIA PROTOCOL Digoxin (Lanoxin) 0.125 mg PO QAM [facility] Last Admin: 09/26/19 08:39 Dose: 0.125 mg Docusate Sodium (Colace) 100 mg PO BID [facility] Last Admin: 09/26/19 08:41 Dose: 100 mg Donepezil HCl (Aricept) 10 mg PO DAILY [facility] Last Admin: 09/26/19 08:41 Dose: 10 mg Famotidine (Pepcid) 20 mg PO BID [facility] Last Admin: 09/26/19 08:39 Dose: 20 mg Glucagon (Glucagon) 1 mg IM PRN PRN PRN Reason: HYPOGLYCEMIA PROTOCOL Ceftriaxone Sodium 2 gm/ (Sodium Chloride) 100 mls @ 200 mls/hr IVPB 0800 [facility] Last Admin: 09/26/19 08:29 Dose: 100 mls Dextrose/Water (D5w) 1,000 mls @ 0 mls/hr IV INF PRN PRN Reason: HYPOGLYCEMIA PROTOCOL Diltiazem HCl 125 mg/ Sodium (Chloride) 125 mls @ 10 mls/hr IVPB INF [facility] Last Admin: 09/26/19 09:18 Dose: 125 mls Insulin Human Lispro (Humalog) 0 units SC .MILD SLIDING SCALE PRN; Protocol PRN Reason: MILD SLIDING SCALE Last Admin: 09/23/19 17:18 Dose: 2 unit Metoprolol Tartrate (Lopressor) 25 mg PO QID [facility] Last Admin: 09/26/19 14:12 Dose: 25 mg Nitroglycerin (Nitrostat) 0.4 mg PO Q5MIN PRN PRN Reason: Chest Pain Ondansetron HCl (Zofran) 4 mg SLOW IVP Q8H PRN PRN Reason: Nausea/Vomiting Ondansetron HCl (Zofran) 8 mg IVP Q8H PRN PRN Reason: Nausea/Vomiting Polyethylene Glycol (Miralax) 17 gm PO DAILY PRN PRN Reason: Constipation Senna/Docusate Sodium (Senokot S) 2 tab PO BID [facility] Last Admin: 09/26/19 08:40 Dose: 2 tab Sodium Chloride (Flush - Normal Saline) 10 ml IVF PRN PRN PRN Reason: Saline Flush Trospium (Trospium) 20 mg PO BID [facility] Last Admin: 09/26/19 08:40 Dose: 20 mg Venlafaxine HCl (Effexor Xr) 112.5 mg PO DAILY [facility] Last Admin: 09/26/19 08:40 Dose: 112.5 mg Vital Signs & Weight: Vital Signs Temp Pulse Resp BP BP Pulse Ox 09/26/19 11:38 97.8 F 69 16 134/63 97 09/26/19 08:39 85 09/26/19 07:45 97.5 F L 135 H 16 125/75 97 09/26/19 03:45 97.9 F 85 18 134/65 97 Weight 202 lb 12.8 oz - Physical Exam General: alert & oriented x3 HEENT: mucus membranes moist Neck: supple neck Cardiac: irregularly regular Lungs: decreased breath sounds Neuro: cranial nerve 2-12 intact Skin: other (PM site with dry dressing) - Labs Result Diagrams: 09/24/19 03:29 09/24/19 03:29 Troponin/CKMB Troponin I 0.020 ng/mL (< 0.028) 09/23/19 00:34 - Telemetry Sinus rhythms and dysrhythmias: other (V paced) Supraventricular conduction: atrial fibrillation - Assessment/Plan Assessment/Plan: 1. New onset A fib with RVR - well controlled HR with Diltiazem drip and PM; On Eliquis 5mg BID for CHADS2-VASC: 4 (age, gender, HTN); on Metoprolol 25mg QID, Digoxin 0.125mg qd, Diltiazem 10mg/h 2. s/p PM placement 08/30 SSS 3. HTN 4. HLD 5. DM type 2 6. Ureterolithiasis MAR reviewed * tomorrow, may start diltiazem PO and wean off Diltazem drip Pt. seen and eval. by me. I agree with the A/P by the [facility]. Some tenderness over the pacer site but no sign of infection. Chest clear. Irreg/irreg. rhythm c/w atrial fib. gjm
--- NOTE | 2019-09-26 21:10 | PDOC.HOSPP ---
- Subjective Encounter Date: 09/26/19 Encounter Time: 09:00 Subjective: no overnight events. This morning feeling well and has no complaints. - Objective Vital Signs & Weight: Vital Signs (12 hours) Temp Pulse Resp BP BP Pulse Ox 09/26/19 20:00 98 F 68 18 139/63 95 09/26/19 15:28 97.8 F 69 16 134/63 95 09/26/19 11:38 97.8 F 69 16 134/63 97 Weight Weight 202 lb 12.8 oz Most Recent Monitor Data Heart Rate from ECG 76 NIBP 165/61 NIBP BP-Mean 95 Respiration from ECG 20 SpO2 95 I&O: 09/25/19 09/26/19 09/27/19 06:59 06:59 06:59 Intake Total 2091 1070 450 Output Total 3180 1000 1200 Balance -1089 70 -750 Result Diagrams: 09/24/19 03:29 09/24/19 03:29 Additional Labs: Accuchecks 09/26/19 09/26/19 09/26/19 16:58 11:11 05:41 POC Glucose 115 H 178 H 115 H 09/25/19 20:56 POC Glucose 125 H Hospitalist ROS - Review of Systems Constitutional: denies: fever, chills, sweats, weakness, malaise, other Respiratory: denies: cough, dry, shortness of breath, hemoptysis, SOB with excertion, pleuritic pain, sputum, wheezing, other Cardiovascular: denies: chest pain, palpitations, orthopnea, paroxysmal noc. dyspnea, edema, light headedness, other Gastrointestinal: denies: nausea, vomiting, abdominal pain, diarrhea, constipation, melena, hematochezia, other Genitourinary: denies: dysuria, frequency, incontinence, hematuria, retention, other - Medication Medications: Active Medications Generic Name Dose Route Start Last Admin Trade Name Freq PRN Reason Stop Dose Admin Acetaminophen 650 mg 09/23/19 00:58 09/26/19 08:41 Tylenol PO 650 mg Q4H PRN Administration Headache/Fever/Mild Pain (1-3) Acetaminophen/Codeine Phosphate 1 tab 09/24/19 17:33 09/25/19 06:54 Tylenol #3 PO 1 tab Q4H PRN Administration Pain 4-6 Apixaban 5 mg 09/26/19 09:00 09/26/19 20:28 Eliquis PO 5 mg BID ANU Administration Cephalexin 250 mg 09/24/19 21:00 09/26/19 20:28 Keflex PO 10/04/19 15:01 250 mg TID ANU Administration Digoxin 0.125 mg 09/25/19 09:00 09/26/19 08:39 Lanoxin PO 0.125 mg QAM ANU Administration Docusate Sodium 100 mg 09/23/19 21:00 09/26/19 20:28 Colace PO 100 mg BID ANU Administration Donepezil HCl 10 mg 09/25/19 09:00 09/26/19 08:41 Aricept PO 10 mg DAILY ANU Administration Famotidine 20 mg 09/23/19 09:00 09/26/19 20:28 Pepcid PO 20 mg BID ANU Administration Ceftriaxone Sodium 2 gm/ 100 mls @ 200 mls/hr 09/23/19 08:00 09/26/19 08:29 Sodium Chloride IVPB 100 mls 0800 ANU Administration Diltiazem HCl 125 mg/ Sodium 125 mls @ 10 mls/hr 09/26/19 08:15 09/26/19 20: 27 Chloride IVPB 125 mls INF ANU Administration 10 MG/HR Insulin Human Lispro 0 units 09/23/19 14:38 09/23/19 17:18 Humalog SC 2 unit .MILD SLIDING SCALE PRN Administration MILD SLIDING SCALE Protocol Metoprolol Tartrate 25 mg 09/24/19 21:00 09/26/19 20:28 Lopressor PO 25 mg QID ANU Administration Ondansetron HCl 4 mg 09/25/19 19:52 09/26/19 16:37 Zofran SLOW IVP 4 mg Q8H PRN Administration Nausea/Vomiting Senna/Docusate Sodium 2 tab 09/23/19 09:00 09/26/19 20:28 Senokot S PO 2 tab BID ANU Administration Trospium 20 mg 09/23/19 21:00 09/26/19 20:28 Trospium PO 20 mg BID ANU Administration Venlafaxine HCl 112.5 mg 09/25/19 09:00 09/26/19 08:40 Effexor Xr PO 112.5 mg DAILY ANU Administration - Exam General Appearance: NAD, awake alert Neck: no JVD Heart: RRR, no murmur, no gallops, no rubs, normal peripheral pulses Respiratory: CTAB, no wheezes, no rales, no ronchi, normal chest expansion Gastrointestinal: soft, non-tender, non-distended, normal bowel sounds Extremities: no edema Psychiatric: normal affect, normal behavior, A&O x 3 Hosp A/P - Plan #uretteral stone s/p stent placement pain well controlled IVF #sick sinus syndrome s/p pacemaker placement regular rate and rhythm on exam () #atrial fibrillation w/ RVR regular rate and rhythm on exam () will attempt to transition to oral rate controlling medication tomorrow as per cardiology started jewel rest of management unchanged
--- NOTE | 2019-09-27 00:59 | EKG ---
Test Reason : Blood Pressure : / mmHG Vent. Rate : 080 BPM Atrial Rate : 288 BPM P-R Int : 000 ms QRS Dur : 076 ms QT Int : 402 ms P-R-T Axes : 084 050 -71 degrees QTc Int : 463 ms Atrial flutter with variable A-V block Low voltage QRS Nonspecific ST and T wave abnormality Abnormal ECG Confirmed by ALANNA BOWLES DO ([id number]), restaurant expeditor JONATHAN NELSON ([id number] on 09/27/2019 12:59:24 AM Referred By: Confirmed By:ALANNA BOWLES DO
--- NOTE | 2019-09-27 00:59 | EKG ---
Test Reason : Blood Pressure : / mmHG Vent. Rate : 132 BPM Atrial Rate : 277 BPM P-R Int : 000 ms QRS Dur : 080 ms QT Int : 246 ms P-R-T Axes : 230 037 241 degrees QTc Int : 364 ms Atrial flutter with variable A-V block Abnormal ECG Confirmed by ALANNA BOWLES DO ([id number]), department editor JONATHAN NELSON ([id number]) on 09/27/2019 12:59:22 AM Referred By: Confirmed By:ALANNA BOWLES DO
[2019-09-27 04:26] LABS: Anion Gap 13 mmol/L (10-20); BUN (Urea Nitrogen) 10 mg/dL (9.8-20.1); Calc. Creatinine Clearance 92 mL/min (70-130); Calcium 8.8 mg/dL (7.8-10.44); Carbon Dioxide 27 mmol/L (23-31); Chloride 103 mmol/L (98-107); Estimated GFR-MDRD 79; Glucose 122 mg/dL (83-110); Magnesium 1.6 mg/dL (1.6-2.6); Potassium 3.6 mmol/L (3.5-5.1); Sodium 139 mmol/L (136-145)
[2019-09-27] MEDS: Venlafaxine XR 37.5 MG CAP PO SCH (08:22)
[2019-09-27] MEDS: Digoxin 0.125 MG TAB PO SCH (08:22)
[2019-09-27] MEDS: Cephalexin 250 MG CAP PO SCH ×3 (08:23→20:41)
[2019-09-27] MEDS: Senokot S 8.6-50 MG TAB PO SCH ×2 (08:23→20:41)
[2019-09-27] MEDS: Apixaban 5 MG TAB PO SCH ×2 (08:23→20:42)
[2019-09-27] MEDS: Famotidine 20 MG TAB PO SCH ×2 (08:23→20:41)
[2019-09-27] MEDS: Metoprolol Tartrate 25 MG TAB PO SCH ×4 (08:23→20:41)
[2019-09-27] MEDS: Trospium 20 MG TAB PO SCH ×2 (08:23→20:41)
[2019-09-27] MEDS: Docusate 100 MG CAP PO SCH ×2 (08:23→20:42)
[2019-09-27] MEDS: cefTRIAXone\\ROCEPHIN 2 GM in Sodium Chloride 0.9% 100 ML IVPB SCH (08:24)
[2019-09-27] MEDS: Donepezil HCl 10 MG TAB PO SCH (08:24)
[2019-09-27] MEDS: Diltiazem 125 MG in Sodium Chloride 0.9% 100 ML IVPB SCH (10:00)
[2019-09-27] MEDS ORDERED: Diltiazem 125 MG in Sodium Chloride 0.9% 100 ML IVPB SCH (10:14)
--- NOTE | 2019-09-27 15:23 | PDOC.CPN ---
- Subjective Date: 09/27/19 Time: 15:25 Interval history: The pt seen and examined. No overnight events. No cardiac complaints. - Objective Allergies/Adverse Reactions: Allergies Allergy/AdvReac Type Severity Reaction Status Date / Time No Known Allergies Allergy Verified 09/23/19 04:45 Visit Medications: Current Medications Acetaminophen (Tylenol) 650 mg PO Q4H PRN PRN Reason: Headache/Fever/Mild Pain (1-3) Last Admin: 09/26/19 08:41 Dose: 650 mg Acetaminophen/Codeine Phosphate (Tylenol #3) 1 tab PO Q4H PRN PRN Reason: Pain 4-6 Last Admin: 09/25/19 06:54 Dose: 1 tab Apixaban (Eliquis) 5 mg PO BID [facility] Last Admin: 09/27/19 08:23 Dose: 5 mg Atropine Sulfate (Atropine) 0.5 mg IVP ASDIR PRN PRN Reason: Sustained Bradycardia HR < 30 Calcium Carbonate (Tums) 1,000 mg PO Q4H PRN PRN Reason: Heartburn or Indigestion Cephalexin (Keflex) 250 mg PO TID [facility] Stop: 10/04/19 15:01 Last Admin: 09/27/19 13:50 Dose: 250 mg Dextrose/Water (Dextrose 50%) 25 gm IVP PRN PRN PRN Reason: HYPOGLYCEMIA PROTOCOL Digoxin (Lanoxin) 0.125 mg PO QAM [facility] Last Admin: 09/27/19 08:22 Dose: 0.125 mg Diltiazem HCl (Cardizem Cd) 120 mg PO BID [facility] Docusate Sodium (Colace) 100 mg PO BID [facility] Last Admin: 09/27/19 08:23 Dose: 100 mg Donepezil HCl (Aricept) 10 mg PO DAILY [facility] Last Admin: 09/27/19 08:24 Dose: 10 mg Famotidine (Pepcid) 20 mg PO BID [facility] Last Admin: 09/27/19 08:23 Dose: 20 mg Glucagon (Glucagon) 1 mg IM PRN PRN PRN Reason: HYPOGLYCEMIA PROTOCOL Ceftriaxone Sodium 2 gm/ (Sodium Chloride) 100 mls @ 200 mls/hr IVPB 0800 [facility] Last Admin: 09/27/19 08:24 Dose: 100 mls Dextrose/Water (D5w) 1,000 mls @ 0 mls/hr IV INF PRN PRN Reason: HYPOGLYCEMIA PROTOCOL Diltiazem HCl 125 mg/ Sodium (Chloride) 125 mls @ 10 mls/hr IVPB INF [facility] Insulin Human Lispro (Humalog) 0 units SC .MILD SLIDING SCALE PRN; Protocol PRN Reason: MILD SLIDING SCALE Last Admin: 09/23/19 17:18 Dose: 2 unit Metoprolol Tartrate (Lopressor) 25 mg PO QID [facility] Last Admin: 09/27/19 13:50 Dose: 25 mg Nitroglycerin (Nitrostat) 0.4 mg PO Q5MIN PRN PRN Reason: Chest Pain Ondansetron HCl (Zofran) 4 mg SLOW IVP Q8H PRN PRN Reason: Nausea/Vomiting Last Admin: 09/26/19 16:37 Dose: 4 mg Ondansetron HCl (Zofran) 8 mg IVP Q8H PRN PRN Reason: Nausea/Vomiting Polyethylene Glycol (Miralax) 17 gm PO DAILY PRN PRN Reason: Constipation Senna/Docusate Sodium (Senokot S) 2 tab PO BID [facility] Last Admin: 09/27/19 08:23 Dose: 2 tab Sodium Chloride (Flush - Normal Saline) 10 ml IVF PRN PRN PRN Reason: Saline Flush Trospium (Trospium) 20 mg PO BID [facility] Last Admin: 09/27/19 08:23 Dose: 20 mg Venlafaxine HCl (Effexor Xr) 112.5 mg PO DAILY [facility] Last Admin: 09/27/19 08:22 Dose: 112.5 mg Vital Signs & Weight: Vital Signs Temp Pulse Pulse Pulse Resp BP BP 09/27/19 11:21 97.3 F L 76 14 09/27/19 11:05 70 09/27/19 10:23 80 81 127/62 127/66 09/27/19 08:22 70 09/27/19 08:00 97.8 F 75 17 09/27/19 04:00 98.3 F 70 18 BP Pulse Ox Pulse Ox Pulse Ox 09/27/19 11:21 136/73 97 09/27/19 11:05 09/27/19 10:23 96 97 09/27/19 08:22 09/27/19 08:00 139/63 95 09/27/19 04:00 138/63 Weight 202 lb 12.8 oz - Physical Exam General: alert & oriented x3 Neck: supple neck Cardiac: regular rate and rhythm, irregularly regular Lungs: clear to auscultation, decreased breath sounds Neuro: cranial nerve 2-12 intact - Labs Result Diagrams: 09/24/19 03:29 09/27/19 03:45 Troponin/CKMB Troponin I 0.020 ng/mL (< 0.028) 09/23/19 00:34 - Telemetry Supraventricular conduction: atrial fibrillation - Assessment/Plan Assessment/Plan: 1. New onset A fib with RVR - well controlled HR with Diltiazem drip and PM; On Eliquis 5mg BID for CHADS2-VASC: 4 (age, gender, HTN); on Metoprolol 25mg QID, Digoxin 0.125mg qd, Diltiazem 10mg/h, which will wean off possible today with Diltiazem 120mg BID 2. s/p PM placement 2/ SSS 3. HTN 4. HLD 5. DM type 2 6. Ureterolithiasis MAR reviewed * Dr Osorio pt
[2019-09-27] MEDS ORDERED: Magnesium 2 GM/50 ML 2 GM in Premix Bag 1 BAG IVPB SCH (15:45)
--- NOTE | 2019-09-27 17:36 | PDOC.HOSPP ---
- Subjective Encounter Date: 09/27/19 Encounter Time: 09:00 Subjective: no overnight events. Rate remains well controlled on cardizem drip 10mg/hr; Cardiology planning on transitioning to oral cardizem - Objective Vital Signs & Weight: Vital Signs (12 hours) Temp Pulse Pulse Pulse Resp BP BP 09/27/19 16:00 97.7 F 69 16 09/27/19 11:21 97.3 F L 76 14 09/27/19 11:05 70 09/27/19 10:23 80 81 127/62 127/66 09/27/19 08:22 70 09/27/19 08:00 97.8 F 75 17 BP Pulse Ox Pulse Ox Pulse Ox 09/27/19 16:00 155/70 H 96 09/27/19 11:21 136/73 97 09/27/19 11:05 09/27/19 10:23 96 97 09/27/19 08:22 09/27/19 08:00 139/63 95 Weight Weight 202 lb 12.8 oz Most Recent Monitor Data Heart Rate from ECG 76 NIBP 165/61 NIBP BP-Mean 95 Respiration from ECG 20 SpO2 95 I&O: 09/26/19 09/27/19 09/28/19 06:59 06:59 06:59 Intake Total 1070 1050 1010 Output Total 1000 2600 800 Balance 70 -1550 210 Result Diagrams: 09/24/19 03:29 09/27/19 03:45 Additional Labs: Accuchecks 09/27/19 09/27/19 09/27/19 16:53 11:16 06:25 POC Glucose 123 H 139 H 122 H 09/26/19 09/26/19 21:15 16:58 POC Glucose 159 H 115 H Hospitalist ROS - Review of Systems Constitutional: denies: fever, chills, sweats, weakness, malaise, other Respiratory: denies: cough, dry, shortness of breath, hemoptysis, SOB with excertion, pleuritic pain, sputum, wheezing, other Cardiovascular: denies: chest pain, palpitations, orthopnea, paroxysmal noc. dyspnea, edema, light headedness, other Gastrointestinal: denies: nausea, vomiting, abdominal pain, diarrhea, constipation, melena, hematochezia, other Genitourinary: denies: hematuria - Medication Medications: Active Medications Generic Name Dose Route Start Last Admin Trade Name Freq PRN Reason Stop Dose Admin Acetaminophen 650 mg 09/23/19 00:58 09/26/19 08:41 Tylenol PO 650 mg Q4H PRN Administration Headache/Fever/Mild Pain (1-3) Acetaminophen/Codeine Phosphate 1 tab 09/24/19 17:33 09/25/19 06:54 Tylenol #3 PO 1 tab Q4H PRN Administration Pain 4-6 Apixaban 5 mg 09/26/19 09:00 09/27/19 08:23 Eliquis PO 5 mg BID ANU Administration Cephalexin 250 mg 09/24/19 21:00 09/27/19 13:50 Keflex PO 10/04/19 15:01 250 mg TID ANU Administration Digoxin 0.125 mg 09/25/19 09:00 09/27/19 08:22 Lanoxin PO 0.125 mg QAM ANU Administration Docusate Sodium 100 mg 09/23/19 21:00 09/27/19 08:23 Colace PO 100 mg BID ANU Administration Donepezil HCl 10 mg 09/25/19 09:00 09/27/19 08:24 Aricept PO 10 mg DAILY ANU Administration Famotidine 20 mg 09/23/19 09:00 09/27/19 08:23 Pepcid PO 20 mg BID ANU Administration Ceftriaxone Sodium 2 gm/ 100 mls @ 200 mls/hr 09/23/19 08:00 09/27/19 08:24 Sodium Chloride IVPB 100 mls 0800 ANU Administration Magnesium Sulfate 2 gm/ Device 50 mls @ 50 mls/hr 09/27/19 15:45 09/27/19 16: 28 IVPB 09/27/19 17:45 50 mls NOW ANU Administration Insulin Human Lispro 0 units 09/23/19 14:38 09/23/19 17:18 Humalog SC 2 unit .MILD SLIDING SCALE PRN Administration MILD SLIDING SCALE Protocol Metoprolol Tartrate 25 mg 09/24/19 21:00 09/27/19 16:28 Lopressor PO 25 mg QID ANU Administration Ondansetron HCl 4 mg 09/25/19 19:52 09/26/19 16:37 Zofran SLOW IVP 4 mg Q8H PRN Administration Nausea/Vomiting Senna/Docusate Sodium 2 tab 09/23/19 09:00 09/27/19 08:23 Senokot S PO 2 tab BID ANU Administration Trospium 20 mg 09/23/19 21:00 09/27/19 08:23 Trospium PO 20 mg BID ANU Administration Venlafaxine HCl 112.5 mg 09/25/19 09:00 09/27/19 08:22 Effexor Xr PO 112.5 mg DAILY ANU Administration - Exam General Appearance: NAD, awake alert Eye: PERRL, anicteric sclera Heart: no murmur, no gallops, no rubs, normal peripheral pulses, irregular Heart - other findings: rate 60-70s Respiratory: CTAB, no wheezes, no rales, no ronchi, normal chest expansion, no tachypnea, normal percussion Gastrointestinal: soft, non-tender, non-distended, normal bowel sounds Extremities: no edema Psychiatric: normal affect, normal behavior, A&O x 3 Hosp A/P - Plan #uretteral stone s/p stent placement pain well controlled -will dc IVF since tolerates PO #sick sinus syndrome s/p pacemaker placement regular rate and rhythm on exam (), however telemetry showing afib that is rate controlled #atrial fibrillation w/ RVR well controlled atrial fibrillation 09/26 -transitioned to oral cardizem per cardiology; on eliquis rest of management unchanged; likely DC 3/2 pending cardiology clearance
[2019-09-28 04:36] LABS: Magnesium 1.9 mg/dL (1.6-2.6); Potassium 3.6 mmol/L (3.5-5.1)
[2019-09-28] MEDS ORDERED: Potassium Chloride 20 MEQ TAB PO SCH (06:56)
--- NOTE | 2019-09-28 07:57 | PRG ---
DATE OF SERVICE: 09/28/2019 SUBJECTIVE: The patient without flank pain or chills. Denies chest pain or shortness of breath. Vital signs stable. Events over the weekend reviewed. The patient currently on Cardizem drip being weaned for p.o. Cardizem. OBJECTIVE: VITAL SIGNS: Stable. Afebrile. I's and O's; 1000 in, 800 out. ABDOMEN: Soft. No rigidity. No rebound. No CVA tenderness. LABORATORY DATA: White count 5, hemoglobin 12, and platelet 159. Creatinine is 0.71. Final urine culture negative. IMPRESSION AND PLAN: 1. Ms. John is an 79-year-old female, who presented with right proximal ureteral calculi on postop day #5, status post cysto, right retrograde stent. 2. Urine culture negative. 3. History of sick sinus syndrome, status post pacemaker, currently rate controlled. Cardiology notes input appreciated, currently having Cardizem drip weaned for p.o. Cardizem. Remains on Eliquis b.i.d. From my perspective, I would prefer the patient on Omnicef as it has better gram-negative coverage. She is on Keflex due to recent pacemaker. Please check with Cardiology if Omnicef p.o. will suffice from their perspective, which I would prefer due to better gram-negative coverage. We will need to discuss with Cardiology, Primary Service regarding definitive cardiac clearance to proceed with ureteroscopy, laser lithotripsy. We will need to also clarify if the patient needs to continue her Eliquis, and to hold for ureteroscopy, laser lithotripsy approval. Informed the patient regarding coordination of care. addendum: Spoke with Dr. Osorio from his perspective, I may proceed to hold Eliquis. However it be prudent to have patient follow-up with her own flight engineer inspector in [place]. follow-up with me September 29 will need to coordinate close follow-up with her flight engineer inspector. Job ID: [id number] [facility]
[2019-09-28] MEDS: Senokot S 8.6-50 MG TAB PO SCH (08:12)
[2019-09-28] MEDS: Donepezil HCl 10 MG TAB PO SCH (08:12)
[2019-09-28] MEDS: Apixaban 5 MG TAB PO SCH (08:12)
[2019-09-28] MEDS: Venlafaxine XR 37.5 MG CAP PO SCH (08:12)
[2019-09-28] MEDS: Cephalexin 250 MG CAP PO SCH (08:12)
[2019-09-28] MEDS: Docusate 100 MG CAP PO SCH (08:12)
[2019-09-28] MEDS: Trospium 20 MG TAB PO SCH (08:12)
[2019-09-28] MEDS: Digoxin 0.125 MG TAB PO SCH (08:13)
[2019-09-28] MEDS: Metoprolol Tartrate 25 MG TAB PO SCH ×2 (08:13→13:59)
[2019-09-28] MEDS: cefTRIAXone\\ROCEPHIN 2 GM in Sodium Chloride 0.9% 100 ML IVPB SCH (08:13)
[2019-09-28] MEDS: Famotidine 20 MG TAB PO SCH (08:13)
[2019-09-28 08:28] VITALS: TEMP 98
[2019-09-28 11:23] VITALS: BP 130/65
--- NOTE | 2019-09-28 13:53 | PDOC.EP ---
- Subjective Date: 09/28/19 Time: 13:52 Interval History: follow up for arrhythmia management and s/p PPM implant. feels well. eager to go home. - Review of Systems Constitutional: denies: chills, fever, malaise, sweats, weakness, other Respiratory: denies: cough, dry, hemoptysis, pleuritic pain, shortness of breath , SOB with excertion, sputum, wheezing, other Cardiology: denies: chest pain, edema, heart racing, light headedness, paroxysmal noc. dyspnea, orthopnea, palpitations, passing out, pleuritic pain, pressure, swelling, other Gastrointestinal: denies: abdominal pain, constipation, diarrhea, hematochezia, melena, nausea, vomitting, other - Objective Allergies/Adverse Reactions: Allergies Allergy/AdvReac Type Severity Reaction Status Date / Time No Known Allergies Allergy Verified 09/23/19 04:45 Current Medications Acetaminophen (Tylenol) 650 mg PO Q4H PRN PRN Reason: Headache/Fever/Mild Pain (1-3) Last Admin: 09/26/19 08:41 Dose: 650 mg Acetaminophen/Codeine Phosphate (Tylenol #3) 1 tab PO Q4H PRN PRN Reason: Pain 4-6 Last Admin: 09/25/19 06:54 Dose: 1 tab Apixaban (Eliquis) 5 mg PO BID [facility] Last Admin: 09/28/19 08:12 Dose: 5 mg Atropine Sulfate (Atropine) 0.5 mg IVP ASDIR PRN PRN Reason: Sustained Bradycardia HR < 30 Calcium Carbonate (Tums) 1,000 mg PO Q4H PRN PRN Reason: Heartburn or Indigestion Cephalexin (Keflex) 250 mg PO TID [facility] Stop: 10/04/19 15:01 Last Admin: 09/28/19 08:12 Dose: 250 mg Dextrose/Water (Dextrose 50%) 25 gm IVP PRN PRN PRN Reason: HYPOGLYCEMIA PROTOCOL Digoxin (Lanoxin) 0.125 mg PO QAM [facility] Last Admin: 09/28/19 08:13 Dose: 0.125 mg Diltiazem HCl (Cardizem Cd) 120 mg PO BID [facility] Last Admin: 09/28/19 08:13 Dose: 120 mg Docusate Sodium (Colace) 100 mg PO BID [facility] Last Admin: 09/28/19 08:12 Dose: 100 mg Donepezil HCl (Aricept) 10 mg PO DAILY [facility] Last Admin: 09/28/19 08:12 Dose: 10 mg Famotidine (Pepcid) 20 mg PO BID [facility] Last Admin: 09/28/19 08:13 Dose: 20 mg Glucagon (Glucagon) 1 mg IM PRN PRN PRN Reason: HYPOGLYCEMIA PROTOCOL Ceftriaxone Sodium 2 gm/ (Sodium Chloride) 100 mls @ 200 mls/hr IVPB 0800 [facility] Last Admin: 09/28/19 08:13 Dose: 100 mls Dextrose/Water (D5w) 1,000 mls @ 0 mls/hr IV INF PRN PRN Reason: HYPOGLYCEMIA PROTOCOL Diltiazem HCl 125 mg/ Sodium (Chloride) 125 mls @ 10 mls/hr IVPB INF [facility] Insulin Human Lispro (Humalog) 0 units SC .MILD SLIDING SCALE PRN; Protocol PRN Reason: MILD SLIDING SCALE Last Admin: 09/23/19 17:18 Dose: 2 unit Metoprolol Tartrate (Lopressor) 25 mg PO QID [facility] Last Admin: 09/28/19 08:13 Dose: 25 mg Nitroglycerin (Nitrostat) 0.4 mg PO Q5MIN PRN PRN Reason: Chest Pain Ondansetron HCl (Zofran) 4 mg SLOW IVP Q8H PRN PRN Reason: Nausea/Vomiting Last Admin: 09/26/19 16:37 Dose: 4 mg Ondansetron HCl (Zofran) 8 mg IVP Q8H PRN PRN Reason: Nausea/Vomiting Polyethylene Glycol (Miralax) 17 gm PO DAILY PRN PRN Reason: Constipation Senna/Docusate Sodium (Senokot S) 2 tab PO BID [facility] Last Admin: 09/28/19 08:12 Dose: 2 tab Sodium Chloride (Flush - Normal Saline) 10 ml IVF PRN PRN PRN Reason: Saline Flush Trospium (Trospium) 20 mg PO BID [facility] Last Admin: 09/28/19 08:12 Dose: 20 mg Venlafaxine HCl (Effexor Xr) 112.5 mg PO DAILY [facility] Last Admin: 09/28/19 08:12 Dose: 112.5 mg Vital Signs & Weight: Vital Signs Temp Pulse Resp BP BP Pulse Ox 09/28/19 11:23 98.0 F 72 20 130/65 97 09/28/19 08:13 76 09/28/19 08:00 98.0 F 76 16 137/67 97 09/28/19 03:46 97.4 F L 76 18 125/58 L 96 Weight 202 lb 12.8 oz I/O: I/O 09/27/19 09/28/19 09/29/19 06:59 06:59 06:59 Intake Total 1050 1010 Output Total 2600 800 Balance -1550 210 - Quality Measures CV meds: Eliquis: Yes (started AM) - Physical Exam General: alert & oriented x3, appears well, no apparent distress, speech clear, affect appropriate HEENT: mucus membranes moist, normocephaly Neck: supple neck, midline trachea, no JVD/HJR, no masses, no bruit, no lymphadenopathy, no thromegaly Cardiology: regular rate, PMI nondisplaced, irregularly irregular Lungs: clear to auscultation, no wheeze, rales, rhonchi Neurology: cranial nerve 2-12 intact, grossly intact, sensory function intact, no lateralizing findings Skin: device site stable w/o swelling - Labs Result Diagrams: 09/24/19 03:29 09/28/19 03:49 - EKG Interpretation EKG Method: Telemetry EKG shows: Atrial fibrillation - Device Device: dual, pacemaker Device Result: Medtronic - Assessment/Plan Assessment/Plan: 1. Atrial arrhythmias with RVR - possibly CTI dependent, newly diagnosed - now rate controlled atrial fibrillation 2. Tachy- torin syndrome - s/p dual chamber medtronic PPM placed 09/24/2019 3. Dual chamber PPM - CXR stable - device check stable, normal function 4. CHADS2-VASC: 4 (age, gender, HTN) - Eliquis 5mg PO BID started 229 AM Now in A Fib. rate controlled. Plan to see back in clinic in 2 weeks for PPM/ wound check. Continue rate control strategy for now. OK for DC. EP signing off.
--- NOTE | 2019-09-29 14:11 | DIS ---
DATE OF ADMISSION: 09/22/2019 DATE OF DISCHARGE: 09/28/2019 HOSPITAL COURSE: Ms. John is an 79-year-old female with a medical history of supraventricular tachycardia and nonsustained ventricular tachycardia, type 2 diabetes, and hypertension, who presented to the ED with right flank pain for one day. She was diagnosed with right proximal ureteral calculus and Urology placed a right retrograde stent. In addition to that, she had difficult to control atrial fibrillation with RVR after the surgery. Cardiology was consulted and she was initially on amiodarone and Cardizem drips and weaned off to Cardizem oral medication, however, returned back to atrial fibrillation with RVR requiring return to drip. She was then weaned slowly and tolerated Cardizem p.o. The patient was eventually discharged on Eliquis 5 mg b.i.d., digoxin 0.125 daily, and diltiazem 120 b.i.d. The patient also had a pacemaker placed on September 27 due to sick sinus syndrome. She had PPM placed on the by Dr. Jimenez. After the surgery, she had pain at the incision site and even though there were no signs of infection, the patient was started on antibiotics. Per Urology, the preferred antibiotic was Omnicef, which also covers skin infections, so the patient was discharged on Omnicef pending appointments with Cardiology and Urology. On the day of discharge, she was hemodynamically stable and her atrial fibrillation has been rate controlled for at least 24 hours prior to discharge. PHYSICAL EXAMINATION: GENERAL APPEARANCE: No apparent distress. Awake and alert. EYE: PERRL. Anicteric sclerae. HEART: No murmurs. No gallops. No rubs. Normal peripheral pulses. Irregular rhythm with a rate between 60s to 70s. RESPIRATORY: Clear to auscultation bilaterally. No wheezes, no rales, no rhonchi. Normal chest expansion. No tachypnea. GI: Soft, nontender, nondistended. Normal bowel sounds. EXTREMITIES: No edema. PSYCHIATRIC: Normal affect. Normal behavior. Alert and oriented x3. ASSESSMENT AND PLAN: Ms. John is an 79-year-old female with a medical history of repeated ureteral stones, who presented with right flank pain. She was diagnosed with right ureteral stone and stent was placed. In addition to that, she had sick sinus syndrome and a pacemaker was placed on the 24 of September. She complained of pain at the incision site and though there were no signs of infection, she was prescribed antibiotics that cover both urinary tract and skin infection bacteria, namely Omnicef, pending followup appointments with Cardiology and Urology. Job ID: [id number]
== END 2019-09-28 15:05 | disposition home or self-care (01) | DRG 243 ==
LOC: ERS 17:11 → EDBD 17:11 → IMCU/EMU 23:29 → CCU 09-23 15:41 → 2NO 09-25 19:26
PROVIDERS: ADMIT Internal Medicine; ATTEND Internal Medicine
PROC: 0T768DZ Dilation of Right Ureter with Intraluminal Device, Via Natural or Artificial Opening Endoscopic (ICD-10-PCS; 2019-09-23)
PROC: 0JH606Z Insertion of Pacemaker, Dual Chamber into Chest Subcutaneous Tissue and Fascia, Open Approach (ICD-10-PCS; principal; 2019-09-24)
PROC: 02H63JZ Insertion of Pacemaker Lead into Right Atrium, Percutaneous Approach (ICD-10-PCS; 2019-09-24)
PROC: 02HK3JZ Insertion of Pacemaker Lead into Right Ventricle, Percutaneous Approach (ICD-10-PCS; 2019-09-24)
DX: I48.91 Unspecified atrial fibrillation (principal); N13.2 Hydronephrosis with renal and ureteral calculous obstruction; I10 Essential (primary) hypertension; E11.9 Type 2 diabetes mellitus without complications; M81.0 Age-related osteoporosis without current pathological fracture; F32.9 Major depressive disorder, single episode, unspecified; E66.9 Obesity, unspecified; M19.90 Unspecified osteoarthritis, unspecified site; I49.5 Sick sinus syndrome; N32.89 Other specified disorders of bladder; I47.1 Supraventricular tachycardia; Z68.31 Body mass index [BMI] 31.0-31.9, adult; Z85.3 Personal history of malignant neoplasm of breast; Z90.49 Acquired absence of other specified parts of digestive tract; Z90.710 Acquired absence of both cervix and uterus; Z90.722 Acquired absence of ovaries, bilateral; Z98.2 Presence of cerebrospinal fluid drainage device; Z87.891 Personal history of nicotine dependence
CPT/HCPCS: 33208; 36415; 36416; 71045; 74420; 80048; 80053; 81001; 83735; 84100; 84132; 84443; 84484; 85025; 87086; 93005; 93010; 93306; 93798; 94760; 96361; 96365; 96366; 96372; 96375; 96376; 99152; 99153; C1758; C1769; C1785; C1898; J0461; J0690; J0696; J1160; J1650; J1885; J2001; J2250; J2405; J2704; J3010; J3475; J3480; J3490; J7050; Q9967

== ENCOUNTER 2019-10-29 13:42 | Outpatient (CLI) | payer MEDICARE ==
[2019-10-29 15:25] LABS: Mean Corpuscular HGB CONC 33.2 g/dL (32.0-36.0); Mean Corpuscular Hemoglobin 28.7 pg (27.0-31.0); Mean Corpuscular Volume 86.4 fL (78.0-98.0); Mean Platelet Volume 8.1 fL (7.4-10.4); Platelet Count 217 thou/uL (130-400); RBC Distribution Width 14.1 % (11.5-14.5); Red Blood Cell (RBC) Count 4.53 mill/uL (4.20-5.40); White Blood Cell (WBC) Count 7.9 thou/uL (4.8-10.8)
[2019-10-29 15:35] LABS: INR-International Normal Ratio 1.2; PTT 33.9 SEC (22.9-36.1); Prothrombin Time 15.2 SEC (12.0-14.7)
[2019-10-29 15:43] LABS: Anion Gap 14 mmol/L (10-20); BUN (Urea Nitrogen) 11 mg/dL (9.8-20.1); Calc. Creatinine Clearance 0 mL/min (70-130); Carbon Dioxide 28 mmol/L (23-31); Chloride 106 mmol/L (98-107); Estimated GFR-MDRD 68; Glucose 163 mg/dL (83-110); Potassium 4.6 mmol/L (3.5-5.1); Sodium 143 mmol/L (136-145)
== END 2019-10-29 13:43 | disposition home or self-care (01) ==
LOC: LABBT 13:42
PROVIDERS: ATTEND Urology
DX: Z01.818 Encounter for other preprocedural examination (principal); N20.1 Calculus of ureter; I49.5 Sick sinus syndrome
CPT/HCPCS: 80048; 81001; 85027; 85610; 85730; 87086; 93005; 93010

== ENCOUNTER 2019-11-11 06:15 | Day surgery (SDC) | payer MEDICARE ==
[2019-11-11] MEDS ORDERED: Fentanyl 100 MCG/2 ML VIAL ONE (06:24)
[2019-11-11] MEDS ORDERED: Famotidine/PF 20 mg/2ml Vial ONE (06:24)
[2019-11-11] MEDS ORDERED: Vancomycin 1 GM/200 ML BAG ONE (07:03)
[2019-11-11] MEDS ORDERED: Levofloxacin 500 mg/D5W 100 ml Premix Bag ONE (07:24)
[2019-11-11] MEDS ORDERED: Iothalamate Meglumine 60% 30 ML VIAL FS ONE (07:42)
[2019-11-11] MEDS ORDERED: Promethazine HCl 25 MG/ML VIAL SLOW IVP PRN (08:16)
[2019-11-11] MEDS ORDERED: Ondansetron HCl/PF 4 MG/2 ML Vial IVP PRN (08:16)
--- NOTE | 2019-11-11 08:28 | RAD ---
RADIOGRAPH ABDOMEN 1 VIEW: DATE: 11/11/2019. TIME: 7:41 AM. HISTORY: An 79-year-old female for preoperative evaluation. FINDINGS: There is a right-sided ureteral stent with upper curl overlying the right renal upper pole shadow, an d the lower curl just to the right of the lower pelvis. There is a catheter vertically descending fr om the chest, paralleling the right side of the lumbar spine, which then swings to the right side ove rlying the right iliac wing, then swings back medially such that the distal tip overlies the lower pe lvis at midline. Bowel gas pattern is nonspecific, with gas in nondilated transverse colon and gas i n a few mildly dilated small bowel loops centrally located. There are several small calcifications in the pelvis bilaterally. The vast majority of these are phl eboliths. It is not possible to rule out the possibility that one of these could be a calculus in th e distal ureters or bladder. There is a vertically oriented 9 x 4 mm calcification overlapping the r ight iliac wing, located very close to the lateral edge of the right ureteral stent. This may or may not be a calculus in the distal right ureter. IMPRESSION: 1. Right ureteral stent. 2. Multiple calcifications in the pelvis. See above comments. 3. Status post cholecystectomy. 4. Ventriculoperitoneal shunt catheter. 5. Nonspecific bowel gas pattern. POS: JIN
[2019-11-11] MEDS ORDERED: Oxybutynin 5 MG TAB ONE (08:41)
[2019-11-11] MEDS ORDERED: Phenazopyridine HCl 97.5 MG TABLET ONE (08:43)
[2019-11-11] MEDS ORDERED: Morphine 2 MG/ML SYRINGE ONE (09:26)
[2019-11-11] MEDS ORDERED: Sodium Chloride 0.9% 10 ML ONE (09:27)
[2019-11-11] MEDS ORDERED: Promethazine HCl 25 MG/ML VIAL ONE (09:27)
--- NOTE | 2019-11-11 09:27 | OP ---
DATE OF PROCEDURE: 11/11/2019 PRIMARY CARE PHYSICIAN: Marshall Whitaker. PREOPERATIVE DIAGNOSES: An 79-year-old female with right mid ureteral calculi at the level of mid SI joint measuring 9mm. POSTOPERATIVE DIAGNOSIS: An 79-year-old female with right mid ureteral calculi at the level of mid SI joint measuring 9 mm. PROCEDURES PERFORMED: Cystoscopy, right 6 x 24 double-J ureteral stent exchange with Dangler, rigid ureteroscopy, laser lithotripsy of mid ureteral calculi, basket extraction of stone fragments. ANESTHESIA: LMA. COMPLICATIONS: None apparent. SPECIMEN: Stone for chemical analysis. INDICATIONS FOR THE PROCEDURE AND HISTORY: Ms. John is a pleasant 79-year- old female with history of diabetes, who presented with intractable pain resulting in arrhythmias. She underwent ureteral stent placement, found to have a high-grade ureteral obstruction as only 4.8-Russian stent was able to be placed. She required cardiac clearance to proceed. This took some time. Her initial stent was placed on September 23, 2019. Her preop urine culture demonstrated Enterococcus. Despite appropriate antibiotic sensitivity regimen targeted, she continues to have bacteria, asymptomatic. I informed the patient that I routinely would prefer negative urine culture, however, she has had a ureteral stent for a protracted period of time, it is likely colonized. Options of deferring versus proceeding with ureteroscopy, laser lithotripsy with appropriate IV targeted antibiotic therapy reviewed. Increased risk of sepsis reviewed with her in detail and she desires to proceed. Options alternatively, with different antibiotic therapy discussed and she declines which is reasonable as the ureteral stent is likely colonized. Risks and complications including bleeding, pain, infection, urosepsis, possible secondary procedure, ureteral or renal injury, perioperative morbidity, mortality was reviewed and she desired to proceed without reservation. DESCRIPTION OF PROCEDURE: After an informed consent was signed, the patient was taken to the operating room, placed in a dorsal lithotomy position with the genital area prepped and draped in the usual surgical sterile fashion. A 21-Russian cystoscope was utilized for cystoscopy and the previously placed ureteral stent was removed with grasping forceps to the level of the meatus. A 0.035 Sensor wire was placed into the left mid to lower pole. A rigid ureteroscopy was then performed. She was nice and passively dilated. I was able to visualize the stone, at the level of the mid ureter. Using 365 micron laser fiber at 1.0 joules in dust setting, we laser lithotripsied the stone into multiple fragments. It was a very dense stone, after appropriate laser lithotripsy, we extracted all fragments amendable to be basket extracted atypicality. Mainly fragment was sent for chemical analysis. We surveyed the ureter and those that were amendable to be basket extracted were removed. What remained were dustlike particles which were not of clinical significance. No evidence of ureteral trauma was noted. A 6 x 24 double-J ureteral stent was passed without difficulty with distal Dangler in place as there was endoscopic clearance. The Dangler was taped to patient's pubic symphysis. She is to discontinue her Macrobid, ciprofloxacin 500 mg one p.o. b.i.d. for 10 days, Azo p.r.n., oxybutynin for 10 days, Colace #30 p.r.n. provided. She is discharged with appropriate antibiotic regimen and will see me next for stent removal on Dangler. Job ID: [id number] [facility]
--- NOTE | 2019-11-11 09:39 | RAD ---
RETROGRADE PYELOGRAM 2 VIEWS: DATE: 11/11/2019. TIME: 9:58 AM. HISTORY: An 79-year-old female with a right ureteral stent. COMPARISON: [facility] of 11/11/2019, 7:41 a.m. FINDINGS: This is submitted as a retrograde pyelogram, but these are actually 2 KUBs with low resolution portab le images obtained in cystoscopy suite, with no contrast injection into the ureters. The original sm all-caliber right ureteral stent is demonstrated on the first image. The calcification adjacent to t he mid portion of the stent overlying the right iliac wing is unchanged on the 1st image. On the second image, the stent has been replaced with a new larger caliber stent, with upper curl ove rlying the expected location of the right renal pelvis, and lower curl near midline in the lower pelv is. The oval calculus no longer is visualized adjacent to the mid ureteral stent. IMPRESSION: 1. Exchange and replacement of the right ureteral stent for a larger caliber ureteral stent. 2. Calculus in right mid ureter no longer present in that location on 2nd image. POS: JIN
[2019-11-11] MEDS ORDERED: HYDROcodone/Acetaminophen 5/325 mg Tablet ONE (10:12)
[2019-11-11] MEDS ORDERED: Ketorolac Tromethamine 30 MG/ML VIAL ONE (10:26)
[2019-11-11] MEDS ORDERED: PHENYLEPHRINE-NS 100 MCG/ML 10 ML SYRINGE ONE (12:13)
[2019-11-11] MEDS ORDERED: Glycopyrrolate 0.2 MG/ML 5 ML SYRINGE ONE (12:13)
[2019-11-11] MEDS ORDERED: Rocuronium Bromide 10 MG/ML (10ML VIAL) ONE (12:13)
[2019-11-11] MEDS ORDERED: Ondansetron PF 4 MG/2 ML Vial ONE (12:13)
[2019-11-11] MEDS ORDERED: Lidocaine 1% PF 5 ML VIAL ONE (12:13)
[2019-11-11] MEDS ORDERED: PROPOFOL 200 MG/20 ML VIAL ONE (12:13)
== END 2019-11-11 10:55 | disposition home or self-care (01) ==
LOC: SDC 06:15
PROVIDERS: ATTEND Urology
PROC: 0TC68ZZ Extirpation of Matter from Right Ureter, Via Natural or Artificial Opening Endoscopic (ICD-10-PCS; principal; 2019-11-11)
PROC: 0T768DZ Dilation of Right Ureter with Intraluminal Device, Via Natural or Artificial Opening Endoscopic (ICD-10-PCS; 2019-11-11)
DX: N20.1 Calculus of ureter (principal); E11.9 Type 2 diabetes mellitus without complications; I10 Essential (primary) hypertension; E78.5 Hyperlipidemia, unspecified; I48.91 Unspecified atrial fibrillation; I49.5 Sick sinus syndrome; G91.9 Hydrocephalus, unspecified; M19.90 Unspecified osteoarthritis, unspecified site; F32.9 Major depressive disorder, single episode, unspecified; F17.200 Nicotine dependence, unspecified, uncomplicated; Z79.01 Long term (current) use of anticoagulants; Z79.899 Other long term (current) drug therapy; Z95.0 Presence of cardiac pacemaker; Z98.2 Presence of cerebrospinal fluid drainage device
CPT/HCPCS: 52356; 74018; 74420; 82365; 88300; J1885; J1956; J2270; J2550; J3010; J3370; C1758; C1769; J2001; J2405; J2704; S0028

== ENCOUNTER 2019-11-19 08:08 | Outpatient (CLI) | payer MEDICARE ==
--- NOTE | 2019-11-19 08:42 | RAD ---
1 VIEW ABDOMEN: Date: 11/19/2019 COMPARISON: 11/11/2019. HISTORY: Ureteral calculus. FINDINGS: Stable surgical clips in the right upper quadrant. Stable right-sided ureteral stent. Previously note d calculus projecting over the right S1-S2 level is no longer appreciated. Subtle calculus along the distal aspect of the right ureter is once again demonstrated and is superimposed by the distal right ureter. Additional phleboliths in the right hemipelvis are noted. No suspicious calcifications projec t over either renal silhouette. IMPRESSION: 1. Right-sided ureteral stent as above. 2. Previously noted calcification projecting over the right aspect of the sacrum is no longer seen. Stable calcification projecting over the distal right ureteral stent. POS: OFF
== END 2019-11-19 08:09 | disposition home or self-care (01) ==
LOC: RAD 08:08
PROVIDERS: ATTEND Urology
DX: N20.1 Calculus of ureter (principal); N28.89 Other specified disorders of kidney and ureter; Z96.0 Presence of urogenital implants
CPT/HCPCS: 74018

== ENCOUNTER 2020-02-24 10:36 | Outpatient (CLI) | payer MEDICARE ==
--- NOTE | 2020-02-24 10:59 | RAD ---
KUB INDICATION: History of ureteral calculi COMPARISON: Prior exam dated November 19, 2019 FINDINGS: Bowel gas: There is a moderate amount of retained stool within the colon. Lung bases: Clear. Additional findings: Right-sided ureteral stent has been removed. Small phleboliths within the lower sacrum is stable. Suspected ventriculoperitoneal shunt catheter coiling within the pelvis is stable. Cholecystectomy clips within the right upper quadrant are stable. Osseous structures: No acute osseous abnormality is demonstrated. There is scattered degenerative and osteoarthritic change present. IMPRESSION: 1. Interval removal of the right ureteral stent. 2. Other stable chronic findings as above
--- NOTE | 2020-02-24 11:14 | ULT ---
RENAL ULTRASOUND HISTORY: Frequency of micturition and ureteral stones COMPARISON: [facility] dated February 24, 2020 FINDINGS: Right Kidney: Size: 9.3 x 4.4 x 4.6 cm. Abnormality: Right renal cortical thickness is 1.3 cm. No hydronephrosis is demonstrated. Left Kidney: Size: 10.7 x 4.8 x 5.5 cm Abnormality: The left renal cortex measures 1.6 cm. There is a 5 mm nonobstructing calculus seen with in the mid left kidney. No hydronephrosis is evident. Urinary bladder: Normal mucosa. IMPRESSION: 1. Mild right renal cortical thinning. 2. No hydronephrosis. 3. Left nephrolithiasis
== END 2020-02-24 10:37 | disposition home or self-care (01) ==
LOC: ULT 10:36
PROVIDERS: ATTEND Urology
DX: N20.1 Calculus of ureter (principal); R35.0 Frequency of micturition; N20.0 Calculus of kidney; N28.89 Other specified disorders of kidney and ureter
CPT/HCPCS: 36415; 74018; 76770; 80048; 81001; 83970; 84550; 87077; 87086; 87186